=== PATIENT | female | born 1940 | race Caucasian/White ===

== ENCOUNTER 2017-05-13 15:01 | Inpatient (IN) ==
[2017-05-13] MEDS ORDERED: SODIUM CHLORIDE 0.9% 500 ML IV STA (15:44)
[2017-05-13 16:01] LABS: Basophils % 0.8 % (0.0-0.8); Eosinophils # 0.1 10*3/uL (0.0-0.87); Eosinophils % 1.4 % (0.00-10.9); Hematocrit 41.1 VOL% (35.7-47.0); Hemoglobin 14.3 GM/DL (12.0-16.0); Immature Granulocytes % 0.4 %; Immature Granulocytes Absolute 0.02 #; Lymphocytes # 1.6 10*3/uL (1.4-4.0); Lymphocytes % 32.6 % (21.3-54.2); Mean Corpuscular HGB Conc 34.8 GM/DL (32-36); Mean Corpuscular Hemoglobin 31 PG (27-34); Mean Corpuscular Volume 88.8 FL (87-102); Mean Platelet Volume 9.4 FL (9.6-12.0); Monocytes # 0.5 10*3/uL (0.11-0.8); Monocytes % 10.9 % (1.7-12.7); Neutrophils # 2.7 10*3/uL (1.4-7.4); Neutrophils % 53.9 % (38.7-73.9); Platelet Count 200 T/CUMM (130-400); Red Blood Count 4.63 MC/CUMM (3.8-5.5); Red Cell Distribution Width 13.2 % (9.3-17.3)
--- NOTE | 2017-05-13 16:02 | Emergency Department Note ---
Fracisco Aranda Brooke, am scribing for, and in the presence of, Kang Goodman MD 15:36. Rex Aranda Phillip K, MD, personally performed the services described in this documentation, ascribed by Syl Yap in my presence, and it is both accurate and complete [id number] . Arrival - Arrival ED Nursing Triage Note: Brought in per EMS with c/o left flank pain onset today. +dyspnea on exertion. +abdominal distention x one month. +decrease urine output. +dizziness. Mode of Arrival: Stretcher Limitations: No Limitations Source: Patient, RN Notes Reviewed - History of Present Illness Onset (ago): day(s) (1) Consistency: intermittent Date of Last Menstrual Period: PM <Kang Goodman - Last Filed: 05/13/17 16:01> <Pete Lewis - Last Filed: 05/13/17 17:49> - Arrival Chief Complaint: Abdominal / Flank Pain Stated Complaint: abdominal pain Time Seen by Provider: 05/13/17 15:26 - History of Present Illness HPI Narrative: Patient is a 77 year old female who presents to the ED with c/o abdominal pain that started this morning. She says she had two "sever" pains shoot across the top of her abdomen and then has had intermittent LUQ pain since. Patient says she has never experienced this pain in the past. She says the pain is worsened with movement and taking deep breaths. She says her abdomen feel bloated. She denies having any fever, nausea, or vomiting but says she feels bloated, has had chills, cough, and left sided back pain. Her cough is productive in the mornings with yellow mucous. She says she has not had an appetite today. Her last bowel movement was yesterday and it was normal. She does have a history of diverticulitis but says the pain is usually in the lower abdomen. She has never had any abdominal surgeries. Patient has PMHx of HTN, migraines, TIA, vertigo, NIDDM, thyroid disorder, recurring urinary tract infections, GERD, back/neck problems, and herniated disk. (Syl Yap) Patient is a 77 year old female who presents to the ED with c/o abdominal pain that started this morning. She says she had two "sever" pains shoot across the top of her abdomen and then has had intermittent LUQ pain since. Patient says she has never experienced this pain in the past. She says the pain is worsened with movement and taking deep breaths. She says her abdomen feel bloated. She denies having any fever, nausea, or vomiting but says she feels bloated, has had chills, cough, and left sided back pain. Her cough is productive in the mornings with yellow mucous. She says she has not had an appetite today. Her last bowel movement was yesterday and it was normal. She does have a history of diverticulitis but says the pain is usually in the lower abdomen. She has never had any abdominal surgeries. Patient has PMHx of HTN, migraines, TIA, vertigo, NIDDM, thyroid disorder, recurring urinary tract infections, GERD, back/neck problems, and herniated disk. (Kang Goodman) Allergies/Adverse Reactions: Allergies Allergy/AdvReac Type Severity Reaction Status Date / Time codeine Allergy Unknown/Unable Verified 05/13/17 15:18 to obtain metronidazole [From Flagyl] Allergy Unknown/Unable Verified 05/13/17 15:18 to obtain Sulfa (Sulfonamide Allergy Unknown/Unable Verified 05/13/17 15:18 Antibiotics) to obtain Home Medications: Home Medications Medication Instructions Recorded Confirmed Type Bisoprolol [Zebeta] 5 mg PO DAILY 08/27/15 01/19/17 History DULoxetine [Cymbalta] 30 mg PO DAILY 08/27/15 01/19/17 History Lactobacillus Combo No.6 1 each PO DAILY 08/27/15 01/19/17 History [Probiotic Complex] [place]-3 Acid Ethyl Esters 1 gm PO DAILY 08/27/15 01/19/17 History Omeprazole [Prilosec] 20 mg PO DAILY 08/27/15 01/19/17 History Lisinopril [Prinivil] 5 mg PO BEDTIME 08/28/15 01/19/17 History Gabapentin Cap/Tab [Neurontin 600 mg PO BEDTIME 09/23/15 01/19/17 History Cap/Tab] Diltiazem Cd Cap [Cardizem CD] 120 mg PO DAILY #30 capsule 09/25/15 01/19/17 Rx Review of System - Review of System 12 point system: reviewed and no additional remarkable complaints except as stated - Review of System Constitutional: Present: chills. Absent: fever Respiratory: Present: cough (productive in the mornings- yellow mucous). Absent : respiratory distress Gastrointestinal: Present: abdominal pain (LUQ). Absent: nausea, vomiting Skin: Absent: rash <Kang Goodman - Last Filed: 05/13/17 16:01> Medical,Surgical,& Family Hx - Medical History Cardio: History of: Hypertension Neurology: History of: Migraine, TIA, Vertigo No history of: Seizures Endocrine: History of: Diabetes Mellitus (NIDDM), Thyroid Disorder Respiratory: History of: Respiratory Problems (sob with exertion) Genitourinary: History of: Bladder Problem (chronic UTI), Recurring Urinary Tract Infections Gastrointestinal: History of: Diverticulitis/ Diverticulosis, GERD Musculoskeletal: History of: Back/Neck Problems, Herniated Disk Hematology: No history of: Blood Transfusion Reaction Other: No history of: Anesthesia Reactions - Surgical History Cardiac Surgeries: Sugical HX of: Cardiac Catheterization (no significant CAD, global left ventricular systolic dysfunction, 40%EF) HEENT Surgeries: Surgical HX of: Eye Surgery (cataracts keith) Abdominal Surgeries: Surgical HX of: Abdominal Surgery (esophageal dilation), Colonoscopy, EGD Orthopedic Surgeries: Surgical HX of;: Spinal Surgery Patient denies;: Orthopedic Surgery - Family History Family History: Reports;: Family Cancer (dad), Family Heart Disease (father with coronary artery disease, mother with heart failure) - Social History Smoking Status: Never smoker Frequency of Alcohol Use: None Type of Drug Use: None <Kang Goodman Julieta - Last Filed: 05/13/17 16:01> Exam - General General appearance: alert, in no apparent distress - Head Head exam: Present: atraumatic, normocephalic - Eye Eye exam: Present: normal appearance, PERRL, EOMI - ENT ENT exam: Present: normal exam - Neck Neck exam: Present: normal inspection - Chest Chest inspection: Present: normal inspection, symmetric chest wall rise - Respiratory Respiratory exam: Present: normal lung sounds bilaterally - Cardiovascular Cardiovascular exam: Present: regular rate, normal rhythm, normal heart sounds - Abdominal Exam Abdominal exam: Present: soft, tenderness (LUQ and LLQ to direct palpation), normal bowel sounds. Absent: distention, guarding, rebound - Extremities Exam Extremities exam: Present: normal inspection - Back Exam Back exam: Present: normal inspection. Absent: CVA tenderness (R), CVA tenderness (L) - Neurological Exam Neurological exam: Present: alert, oriented X3 - Psychiatric Psychiatric exam: Present: normal affect, normal mood - Skin Skin exam: Present: warm, dry, intact, normal color <Kang Goodman - Last Filed: 05/13/17 16:01> Vital Signs: Vital Signs Temperature 97.3 F L 05/13/17 15:01 Pulse Rate 75 05/13/17 16:00 Respiratory Rate 18 05/13/17 16:00 Blood Pressure 137/87 05/13/17 16:00 O2 Sat by Pulse Oximetry 92 L 05/13/17 16:00 Course <Kang Goodman - Last Filed: 05/13/17 16:01> <Pete Lewis - Last Filed: 05/13/17 17:49> - Reevaluation(s) Reevaluation #1: Discussed with patient the results of her CT which would indicate the possible finding of a colonic stricture or apple core lesion. This would require hospitalization for further evaluation. (Pete Lewis) - Consultations Consultation #1: Discussed with the hospitalist service who will admit for further evaluation treatment. (Pete Lewis) Results <Kang Goodman - Last Filed: 05/13/17 16:01> - Labs CBC & BMP: 05/13/17 15:54 05/13/17 15:54 - Diagnostic Findings Procedure: CT Abdomen and Pelvis: image reviewed by me, report reviewed by me ( Evidence of excessive stool but also colonic stricture) <Pete Lewis - Last Filed: 05/13/17 17:49> - Labs Labs: I reviewed the laboratory and noted its gross normality (Pete Lewis) Disposition <Kang Goodman - Last Filed: 05/13/17 16:01> Case discussed with: patient Time of Disposition: 17:49 <Pete Lewis - Last Filed: 05/13/17 17:49> Clinical Impression: Colonic stricture, Diverticulosis, Constipation Disposition: Still a Patient Condition: Stable
[2017-05-13] MEDS ORDERED: LEVOFLOXACIN INJ 750 MG in PREMIX 1 EACH IV STA (16:03)
[2017-05-13] MEDS ORDERED: DICYCLOMINE 20 MG/2 ML AMP IM ONE ×2 (16:03→16:18)
[2017-05-13] MEDS ORDERED: METOCLOPRAMIDE 10 MG/2 ML VIAL IV STA (16:03)
[2017-05-13] MEDS ORDERED: METOCLOPRAMIDE 10 MG/2 ML VIAL ONE (16:18)
[2017-05-13] MEDS ORDERED: LEVOFLOXACIN INJ 150 ML IV ONE (16:18)
--- NOTE | 2017-05-13 16:27 | XRay Report ---
Portable chest Date: 05/13/2017 Clinical history: Generalized abdominal pain Comparison: 09/23/2015 Technique: Portable AP sitting chest Findings: The heart is normal in size with minimal uncoiling of the aorta. Chronic scarring in the lungs with minimal atelectasis at the lung bases. Degenerative changes are noted with stable mediastinum. Impression: Chronic scarring with minimal atelectasis at the lung bases. PROCEDURE INTERPRETED AT [facility] DEPARTMENT OF RADIOLOGY Final Report Signed by: Dr. Gricelda Ramachandran
[2017-05-13 16:39] LABS: Bilirubin,Total 0.4 MG/DL (0.2-1.0); Calcium 9.4 MG/DL (8.5-10.1); Magnesium 2.6 MG/DL (1.8-2.4); Osmolality,Calculated 283.1 MOS/KG (273-304); Potassium 3.7 MMOL/L (3.5-5.1); Total Protein 7.4 G/DL (6.4-8.3)
[2017-05-13 16:41] LABS: Apearance,Urine CLEAR (Clear); Bilirubin,Urine Negative (Negative); Blood, Urine Negative (Negative); Glucose,Urine (UA) Negative (Negative); Ketones,Urine Negative (Negative); Mucus,Urine Occasional /LPF (Occasional); Nitrite,Urine Negative (Negative); Protein,Urine Negative; RBC,Urine 2 /HPF (0-4); Urine Color Yellow (Yellow); Urine Specific Gravity 1.006 (1.001-1.035)
--- NOTE | 2017-05-13 16:51 | CT Report ---
History: Abdominal pain and pelvic pain Date: 05/13/2017 Study: CT abdomen and pelvis without contrast Comparison exam: No previous abdominal CT available Technique: Spiral CT sections were obtained from the lung bases to the pubic symphysis without contrast. The CT exam was performed using one or more of the following dose reduction techniques: Automated exposure control, adjustment of the mA and/or kV according to patient size, or use of iterative reconstruction technique. CT abdomen: There is some minor platelike scar or subsegmental atelectasis in the lower lobes. There is a small nonspecific 5.9 mm lobular noncalcified pulmonary nodule in the right middle lobe of uncertain chronicity. Consider 1 year follow-up CT chest to document stability over time if the patient is at high risk for malignancy. There is no pleural or pericardial effusion. There is a small hiatal hernia. There is no evidence of pneumoperitoneum. The liver, gallbladder, bile ducts, spleen, pancreas, adrenal glands, and kidneys are unremarkable in noncontrast CT appearance. There is no radiopaque renal or ureteral stone. There is no hydronephrosis. The appendix is normal. There is a large amount of retained stool in the colon. There is prominent diverticulosis of the colon, more so at the sigmoid level. There is a small area of relative narrowing of the sigmoid colon, proximal to which there is an abundant amount of stool. Consider follow-up contrast enema or endoscopy to help exclude mild stricture at this level. CT pelvis: There is no pelvic mass or abnormal pelvic fluid collection. Impression: Large amount of stool in the colon suggesting constipation. There is a small area of relative narrowing of the sigmoid colon which could be artifactual related to peristalsis or could represent an underlying mild colonic stricture. Consider follow-up contrast enema or endoscopy to help exclude stricture, when clinically feasible. Diverticulosis without john diverticulitis No radiopaque renal or ureteral stone. PROCEDURE INTERPRETED AT [facility] DEPARTMENT OF RADIOLOGY Final Report Signed by: Dr. Vero Mitchell
[2017-05-13] MEDS ORDERED: methylPREDNISolone SOD SUC 125 MG/2 ML VIAL IV STA (17:45)
[2017-05-13] MEDS ORDERED: methylPREDNISolone SOD SUC 125 MG/2 ML VIAL ONE (18:01)
--- NOTE | 2017-05-13 18:01 | EKG Report ---
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
--- NOTE | 2017-05-13 18:03 | Hospitalist History & Physical ---
Assessment and Plan (1) Abdominal pain Status: Acute Assessment and plan: There are several factors that may attribute to the onset of abdominal pain. CT scan revealed a large amount of stool located in the distal colon. Per patient report, her constipation is chronic in nature. However, CT scan also identified colonic stricture and the presence of diverticulosis without john diverticulitis. We will start empiric antibiotic coverage, promote bowel rest, manage pain, and consult gastroenterology to evaluate and assist during the clinical encounter. Current Visit: Yes (2) Constipation Status: Acute Assessment and plan: Patient reports constipation is chronic in nature and is associated with her medication use. Patient reports that she normally goes at least one week without having a bowel movement. CT scan reported a large amount of stool in the colon which suggested constipation. We will start empiric antibiotics, PPIs , promote bowel rest, pain management, and consult GI to evaluate and assist during the clinical encounter. Current Visit: No (3) Atrial fibrillation, chronic Status: Acute Assessment and plan: Shortly after the physical assessment, the patient notified the nursing staff "heart flutters"; an EKG was obtained which revealed atrial fibrillation with a rate of 120. We will give Cardizem 15 mg IV push for rate control prior to transfer to the medical surgical floor. The patient will be placed on a bus driver/monitor. We will consult cardiology to evaluate and assist during the clinical encounter. Current Visit: Yes History of Present Illness Chief complaint: abdominal pain History of present illness: This is a very pleasant 77-year-old female that presented to the ED at [facility] per EMS for the evaluation of abdominal pain. And has a medical history significant for: Coronary artery disease, hyperlipidemia, sciatica, hyperlipidemia, diverticulitis, diverticulosis, migraine headaches, transient ischemic attacks, vertigo, chronic ear tract infections, chronic neck and back pain, neuropathy, atrial fibrillation with rapid ventricular response, essential hypertension, and chronic constipation. Patient has a surgical history significant for some bilateral cataract removal, esophageal dilation, colonoscopy, and lumbar surgery. The patient reported the onset of the above complaints on earlier today. The patient describes the pain as "very severe" that initially radiated across her entire abdomen; then gradually progressed to intermittent left upper quadrant pain. In addition, the patient reports that the pain increases with movement and inhalation. She reports that she has experienced intermittent chills, cough, and left-sided back pain. She describes her cough as productive in the mornings with a yellow mucus production. At the time of ED presentation, the patient was assessed. Labs were obtained; hematology reported white blood cell count at 5.0, hemoglobin at 14.3, hematocrit 41.1, and platelet count of 200. Chemistry profile reported; sodium 142, potassium 3.7, chloride 107, carbon dioxide 27, anion gap 11.7, BUN 15, creatinine 1.00, glucose 90 benign, calculated osmolality 283.1, calcium 9.4, magnesium 2.6, total bilirubin 0.40, AST 19, ALT 22, alkaline phosphatase 64, total protein 7.4, albumin 4.0, lipase 240.0. Urinalysis was essentially unremarkable. Chest x-ray was obtained; which was significant for chronic scarring and minimal atelectasis at the lung bases. CT abdomen and pelvis suggested a large amount of stool in the colon suggesting constipation. A small area of relative narrowing of the sigmoid colon was noted which could be artifactual or related to peristalsis or could represent underlying mild colonic stricture. Diverticulitis was present without john diverticulosis. After brief discussion with Dr. Hercules and , the patient will be admitted to the hospitalist services for continuation of care. We will consult gastroenterology to evaluate and assist during the clinical encounter. Home Medications Medication Instructions Recorded Confirmed Type Bisoprolol [Zebeta] 5 mg PO DAILY 08/27/15 01/19/17 History DULoxetine [Cymbalta] 30 mg PO DAILY 08/27/15 01/19/17 History Lactobacillus Combo No.6 1 each PO DAILY 08/27/15 01/19/17 History [Probiotic Complex] [place]-3 Acid Ethyl Esters 1 gm PO DAILY 08/27/15 01/19/17 History Omeprazole [Prilosec] 20 mg PO DAILY 08/27/15 01/19/17 History Lisinopril [Prinivil] 5 mg PO BEDTIME 08/28/15 01/19/17 History Gabapentin Cap/Tab [Neurontin 600 mg PO BEDTIME 09/23/15 01/19/17 History Cap/Tab] Diltiazem Cd Cap [Cardizem CD] 120 mg PO DAILY #30 capsule 09/25/15 01/19/17 Rx Allergies Allergy/AdvReac Type Severity Reaction Status Date / Time codeine Allergy Unknown/Unable Verified 05/13/17 15:18 to obtain metronidazole [From Flagyl] Allergy Unknown/Unable Verified 05/13/17 15:18 to obtain Sulfa (Sulfonamide Allergy Unknown/Unable Verified 05/13/17 15:18 Antibiotics) to obtain Medical,Surgical,& Family Hx - Medical History Cardio: History of: Hypertension Neurology: History of: Migraine, TIA, Vertigo No history of: Seizures Endocrine: History of: Diabetes Mellitus (NIDDM), Thyroid Disorder Respiratory: History of: Respiratory Problems (sob with exertion) Genitourinary: History of: Bladder Problem (chronic UTI), Recurring Urinary Tract Infections Gastrointestinal: History of: Diverticulitis/ Diverticulosis, GERD Musculoskeletal: History of: Back/Neck Problems, Herniated Disk Hematology: No history of: Blood Transfusion Reaction Other: No history of: Anesthesia Reactions - Surgical History Cardiac Surgeries: Sugical HX of: Cardiac Catheterization (no significant CAD, global left ventricular systolic dysfunction, 40%EF) HEENT Surgeries: Surgical HX of: Eye Surgery (cataracts keith) Abdominal Surgeries: Surgical HX of: Abdominal Surgery (esophageal dilation), Colonoscopy, EGD Orthopedic Surgeries: Surgical HX of;: Spinal Surgery Patient denies;: Orthopedic Surgery - Family History Family History: Reports;: Family Cancer (dad), Family Heart Disease (father with coronary artery disease, mother with heart failure) - Social History Smoking Status: Never smoker Frequency of Alcohol Use: None Type of Drug Use: None 12 point system: reviewed and no additional remarkable complaints except as stated Exam - Constitutional Vitals: Period Temp Pulse Resp BP Sys/Alba Pulse Ox Last 24 Hr 97.3 F-97.3 F 75-76 18-20 137-162/87-94 92-98 General appearance: normal weight, no acute distress - Head Head exam: Present: normal inspection, normocephalic, atraumatic - Eye Eye exam: Present: EOMI. Absent: conjunctival injection Pupils: Present: ELIZABETH, normal accommodation - ENT ENT exam: Present: normal exam, normal external ear exam, normal oropharynx - Neck Neck exam: Present: normal inspection. Absent: lymphadenopathy, meningismus, tenderness, thyromegaly - Respiratory Respiratory exam: Present: clear to auscultation bilaterally. Absent: rales, rhonchi, stridor, wheezes - Cardiovascular Cardiovascular exam: Present: regular rate and rhythm. Absent: carotid bruit, diastolic murmur, gallop, JVD, rubs, systolic murmur, tachycardia - GI/Abdominal GI/Abdominal exam: Present: hypoactive bowel sounds, tenderness (Left upper and left lower quadrant tenderness upon gentle palpation), soft - Extremities Exam Extremities exam: Present: normal inspection, normal capillary refill, full ROM - Back Exam Back exam: Present: normal inspection - Neurological Exam Neurological exam: Present: alert, oriented X3, CN II-XII intact - Psychiatric Psychiatric exam: Present: normal affect, normal mood - Skin Skin exam: Present: normal color, warm Results - Labs CBC & BMP: 05/13/17 15:54 05/13/17 15:54 Lab Results: I have reviewed the past 24 hour labs
[2017-05-13] MEDS ORDERED: DILTIAZEM 50 MG/10 ML VIAL IV STA (18:12)
[2017-05-13] MEDS ORDERED: MAGNESIUM SULF RIDER 2 GM in PREMIX 1 EACH IV PRN (18:20)
[2017-05-13] MEDS ORDERED: MAGNESIUM SULF RIDER 4 GM in PREMIX 1 EACH IV PRN (18:20)
[2017-05-13] MEDS ORDERED: DILTIAZEM 50 MG/10 ML VIAL IV ONE (18:29)
[2017-05-13] MEDS ORDERED: ACETAMINOPHEN 325 MG TABLET PO PRN (19:28)
[2017-05-13] MEDS ORDERED: DOCUSATE SODIUM 100 MG CAPSULE PO PRN (19:28)
[2017-05-13] MEDS: DULoxetine 30 MG CAPSULE PO SCH (21:16)
[2017-05-13] MEDS: SODIUM CHLORIDE 0.9% 1,000 ML IV SCH (21:16)
[2017-05-13] MEDS: GABAPENTIN 600 MG TABLET PO SCH (21:17)
[2017-05-13] MEDS: LISINOPRIL 5 MG TABLET PO SCH (21:17)
[2017-05-13] MEDS ORDERED: MAGNESIUM CITRATE 300 ML BOTTLE PO ONE (22:10)
[2017-05-14] MEDS: LEVOTHYROXINE 50 MCG TABLET PO SCH (05:50)
[2017-05-14 07:24] LABS: Hematocrit 39.9 VOL% (35.7-47.0); Hemoglobin 13.5 GM/DL (12.0-16.0); Immature Granulocytes % 0.4 %; Immature Granulocytes Absolute 0.02 #; Lymphocytes # 0.7 10*3/uL (1.4-4.0); Lymphocytes % 12.2 % (21.3-54.2); Mean Corpuscular HGB Conc 33.8 GM/DL (32-36); Mean Corpuscular Hemoglobin 31 PG (27-34); Mean Corpuscular Volume 90.5 FL (87-102); Mean Platelet Volume 9.4 FL (9.6-12.0); Monocytes # 0.1 10*3/uL (0.11-0.8); Monocytes % 1.1 % (1.7-12.7); Neutrophils # 4.7 10*3/uL (1.4-7.4); Neutrophils % 86.3 % (38.7-73.9); Platelet Count 194 T/CUMM (130-400); Red Blood Count 4.41 MC/CUMM (3.8-5.5); Red Cell Distribution Width 13.1 % (9.3-17.3); White Blood Count 5.4 T/CUMM (4-12)
[2017-05-14 07:47] LABS: Albumin 3.5 G/DL (3.4-5.0); Bilirubin,Total 0.5 MG/DL (0.2-1.0); Calcium 8.4 MG/DL (8.5-10.1); Magnesium 2.7 MG/DL (1.8-2.4); Osmolality,Calculated 297.3 MOS/KG (273-304); Potassium 4.1 MMOL/L (3.5-5.1); Total Protein 6.7 G/DL (6.4-8.3)
[2017-05-14] MEDS ORDERED: PANTOPRAZOLE 40 MG VIAL IV SCH (09:00)
[2017-05-14] MEDS: SODIUM CHLORIDE 0.9% 1,000 ML IV SCH (09:35)
[2017-05-14] MEDS: BISOPROLOL 5 MG TABLET PO SCH (09:37)
[2017-05-14] MEDS: PANTOPRAZOLE 40 MG TABLET PO SCH (09:37)
[2017-05-14] MEDS: OMEGA 3 ACID ETHYL ESTERS 1 GM CAPSULE PO SCH (09:37)
[2017-05-14] MEDS: DILTIAZEM CD 120 MG CAPSULE PO SCH (09:37)
[2017-05-14] MEDS: DULoxetine 30 MG CAPSULE PO SCH ×2 (09:37→20:49)
[2017-05-14] MEDS: LACTOBACILLUS ACIDOPHILUS/BULGARICUS CHEW TABLET PO SCH (09:40)
--- NOTE | 2017-05-14 11:03 | Cardiology Consult Note ---
Assessment and Plan (1) Paroxysmal atrial fibrillation Status: Acute Assessment and plan: She has converted back to sinus rhythm. I agree with her current management and I am going to add vitamin C which may help with the constipation and the paroxysmal atrial fibrillation. I think the patient should get chronic anticoagulation with medication such as Eliquis. However, she may end up needing endoscopy. We can hold off on starting this until after her workup is complete. At that point I think we should start Eliquis 2.5 mg p.o. twice daily. Current Visit: Yes (2) Abdominal pain Status: Acute Assessment and plan: Workup underway per gastroenterology Current Visit: Yes (3) Constipation Status: Acute Assessment and plan: Patient has marked constipation which is being treated. This may be the source of her abdominal bloating. GI is also seeing her. Current Visit: No (4) Essential hypertension Status: Acute Assessment and plan: This appears to be adequately controlled on her current medical regimen. Current Visit: No History of Present Illness - Consult Narrative History of present illness: Ms. Buckner is a 77 year old female who has a history of multiple medical problems including paroxysmal atrial fibrillation, constipation, hyperlipidemia , and hypertension. She tells me that occasionally she will develop palpitations consistent with A. fib and she takes a beta-adrian and lays down and generally this goes away within a few hours spontaneously. The symptoms are moderate in severity and seem to occur randomly. There are no specific exacerbating or relieving factors. There are no associated symptoms such as nausea, diaphoresis, or syncope. The patient also states that recently she has been having severe bloating in her abdomen. The symptoms are moderate to severe and seem to come and go randomly. There are no specific exacerbating or relieving factors. She also has chronic constipation. She came to the hospital for evaluation and was noted to have paroxysmal atrial fibrillation. She is back in sinus rhythm at this time. Actually the time I was seeing her she was feeling pretty much back to normal. She was not having any cardiac symptoms such as angina, palpitations, dyspnea, orthopnea, or peripheral edema. She has some chronic constipation and CT scan shows a colonic stricture with the presence of diverticulosis. Gastroenterology has been consulted to evaluate her. She does have a history of colon cancer in her sister. Home Medications Medication Instructions Recorded Confirmed Type Bisoprolol [Zebeta] 5 mg PO QAM 08/27/15 05/13/17 History DULoxetine [Cymbalta] 30 mg PO BID 08/27/15 05/13/17 History Lactobacillus Combo No.6 1 each PO QAM 08/27/15 05/13/17 History [Probiotic Complex] Ophiem-3 Acid Ethyl Esters 1 gm PO QAM 08/27/15 05/13/17 History Omeprazole [Prilosec] 20 mg PO QAM 08/27/15 05/13/17 History Lisinopril [Prinivil] 5 mg PO BEDTIME 08/28/15 05/13/17 History Gabapentin Cap/Tab [Neurontin 600 mg PO BEDTIME 09/23/15 05/13/17 History Cap/Tab] Diltiazem Cd Cap [Cardizem CD] 120 mg PO QAM 05/13/17 05/13/17 History Levothyroxine Tab [Synthroid Tab] 50 mcg PO DAILY@59905/13/17 05/13/17 History CC: Emilee Hilliard MD - Home Medications and Allergies Home Medications: Home Medications Medication Instructions Recorded Confirmed Type Bisoprolol [Zebeta] 5 mg PO QAM 08/27/15 05/13/17 History DULoxetine [Cymbalta] 30 mg PO BID 08/27/15 05/13/17 History Lactobacillus Combo No.6 1 each PO QAM 08/27/15 05/13/17 History [Probiotic Complex] Ophiem-3 Acid Ethyl Esters 1 gm PO QAM 08/27/15 05/13/17 History Omeprazole [Prilosec] 20 mg PO QAM 08/27/15 05/13/17 History Lisinopril [Prinivil] 5 mg PO BEDTIME 08/28/15 05/13/17 History Gabapentin Cap/Tab [Neurontin 600 mg PO BEDTIME 09/23/15 05/13/17 History Cap/Tab] Diltiazem Cd Cap [Cardizem CD] 120 mg PO QAM 05/13/17 05/13/17 History Levothyroxine Tab [Synthroid Tab] 50 mcg PO DAILY@59905/13/17 05/13/17 History Allergies/Adverse Reactions: Allergies Allergy/AdvReac Type Severity Reaction Status Date / Time codeine Allergy Unknown/Unable Verified 05/13/17 15:18 to obtain metronidazole [From Flagyl] Allergy Unknown/Unable Verified 05/13/17 15:18 to obtain Sulfa (Sulfonamide Allergy Unknown/Unable Verified 05/13/17 15:18 Antibiotics) to obtain 12 point system: reviewed and no additional remarkable complaints except as stated Medical,Surgical,& Family Hx - Medical History Cardio: History of: Cardiac Dysrhythmia (atrial fib), Hypertension Neurology: History of: Migraine, TIA, Vertigo No history of: Seizures Endocrine: History of: Thyroid Disorder No history of: Diabetes Mellitus (NIDDM) Respiratory: History of: Respiratory Problems (sob with exertion) Genitourinary: History of: Bladder Problem (chronic UTI), Recurring Urinary Tract Infections Gastrointestinal: History of: Diverticulitis/ Diverticulosis, GERD, GI Problems (esophageal stricture) Musculoskeletal: History of: Back/Neck Problems, Herniated Disk Hematology: No history of: Blood Transfusion Reaction Other: No history of: Anesthesia Reactions - Surgical History Cardiac Surgeries: Sugical HX of: Cardiac Catheterization (no significant CAD, global left ventricular systolic dysfunction, 40%EF) Thoracic Surgeries: Patient denies;: Lobectomy Neurologic Surgeries: Patient denies: Neurologic Surgery HEENT Surgeries: Surgical HX of: Eye Surgery (cataracts keith) Abdominal Surgeries: Surgical HX of: Abdominal Surgery (esophageal dilation), Colonoscopy, EGD Reproductive Surgeries: Patient denies;: Genitourinary Surgery, Gynecologic Surgery Orthopedic Surgeries: Surgical HX of;: Spinal Surgery Patient denies;: Orthopedic Surgery - Family History Family History: Reports;: Family Cancer (dad), Family Heart Disease (father with coronary artery disease, mother with heart failure) - Social History Smoking Status: Never smoker Frequency of Alcohol Use: None Type of Drug Use: None Physical Examination Vital Signs Temp Pulse Resp BP Pulse Ox 97.3 F L 76 20 152/89 98 05/13/17 15:01 05/13/17 15:01 05/13/17 15:01 05/13/17 15:01 05/13/17 15:01 Other: General: Well-developed well-nourished in no acute distress HEENT: Normocephalic, atraumatic Neck: Supple Neck, Midline Trachea, no JVD, no bruit Cardiac: Regular rhythm, 2/6 systolic murmur, no gallop, no rub Lungs: Clear to Ascultation, No Wheeze, Rales, Rhonchi Neuro: Cranial Nerve 2-12 Intact, diffuse generalized weakness Abdomen: Soft, hypoactive bowel sounds, mild diffuse tenderness, no rebound, no masses Skin: Normal color, no rash Extremities: No Clubbing, No Cyanosis, No Edema, Normal Upper Extr. Pulses Musculoskeletal: No acute abnormality noted Psychiatric: The patient is alert and oriented. The patient does not appear to be anxious or depressed. Result/EKG - Labs CBC & BMP: 05/14/17 07:19 05/14/17 06:00 Lab Results: I have reviewed the past 24 hour labs Labs: Laboratory Results - last 24 hr 05/13/17 05/13/17 05/13/17 15:54 15:54 16:25 WBC 5.0 RBC 4.63 Hgb 14.3 Hct 41.1 MCV 88.8 MCH 31 MCHC 34.8 RDW 13.2 Plt Count 200 MPV 9.4 L Neut % (Auto) 53.9 Lymph % (Auto) 32.6 Hamlin % (Auto) 10.9 Eos % (Auto) 1.4 Baso % (Auto) 0.8 Neut # (Auto) 2.7 Lymph # (Auto) 1.6 Hamlin # (Auto) 0.5 Eos # (Auto) 0.1 Baso # (Auto) 0.0 Immature Gran % 0.4 Nucleated RBC % 0.0 Immature Gran # 0.02 Nucleated RBCs # 0.00 Sodium 142 Potassium 3.7 Chloride 107 Carbon Dioxide 27 Anion Gap 11.7 BUN 15 Creatinine 1.00 GFR Calculation 58 BUN/Creatinine Ratio 15.00 Glucose 99 Calculated Osmolality 283.1 Calcium 9.4 Magnesium 2.6 H Total Bilirubin 0.40 AST 19 ALT 22 Alkaline Phosphatase 64 Total Protein 7.4 Albumin 4.0 Globulin 3.4 Albumin/Globulin Ratio 1.1 Lipase 240.0 Urine Color Yellow Urine Appearance Clear Urine pH 6.0 Ur Specific Collison 1.006 Urine Protein Negative Urine Glucose (UA) Negative Urine Ketones Negative Urine Blood Negative Urine Nitrate Negative Urine Bilirubin Negative Urine Urobilinogen 2.0 H Urine Leukocytes Negative Urine RBC 2 Urine Mucus Occasional Ur Culture Indicated? Not indicated 05/14/17 05/14/17 06:00 07:19 WBC 5.4 RBC 4.41 Hgb 13.5 Hct 39.9 MCV 90.5 MCH 31 MCHC 33.8 RDW 13.1 Plt Count 194 MPV 9.4 L Neut % (Auto) 86.3 H Lymph % (Auto) 12.2 L Hamlin % (Auto) 1.1 L Eos % (Auto) 0.0 Baso % (Auto) 0.0 Neut # (Auto) 4.7 Lymph # (Auto) 0.7 L Hamlin # (Auto) 0.1 L Eos # (Auto) 0.0 Baso # (Auto) 0.0 Immature Gran % 0.4 Nucleated RBC % 0.0 Immature Gran # 0.02 Nucleated RBCs # 0.00 Sodium 148 H Potassium 4.1 Chloride 113 H Carbon Dioxide 26 Anion Gap 13.1 BUN 17 Creatinine 1.10 H GFR Calculation 52 BUN/Creatinine Ratio 15.00 Glucose 133 H Calculated Osmolality 297.3 Calcium 8.4 L Magnesium 2.7 H Total Bilirubin 0.50 AST 15 ALT 20 Alkaline Phosphatase 57 Total Protein 6.7 Albumin 3.5 Globulin 3.2 Albumin/Globulin Ratio 1.0 L Lipase Urine Color Urine Appearance Urine pH Ur Specific Collison Urine Protein Urine Glucose (UA) Urine Ketones Urine Blood Urine Nitrate Urine Bilirubin Urine Urobilinogen Urine Leukocytes Urine RBC Urine Mucus Ur Culture Indicated? - EKG EKG results: interpreted by me
--- NOTE | 2017-05-14 11:03 | Gastrointestinal Consult Note ---
Assessment and Plan (1) Abnormal CT of the abdomen Status: Acute Assessment and plan: We will plan laxative treatment to minimize her constipation she has been taking Linzess periodically at home. Will get a copy of her prior colonoscopy report to assess adequacy of visualization with her family history and the abnormal CT it may be prudent to repeat her colonoscopy but a lot of this may be artifactual in nature as well. For now we will focus on fixing her obstipation issue and plans for ongoing management of this. Will discuss further possibility of colonoscopy. Current Visit: Yes (2) Constipation Status: Acute Assessment and plan: As above Current Visit: No (3) GERD (gastroesophageal reflux disease) Status: Acute Assessment and plan: Continue PPI treatment and antireflux precautions. No indication for EGD at this time. Current Visit: No History of Present Illness Chief complaint: Abnormal abdominal CT History of present illness: Ms. Buckner is a 77 year old female Who was admitted with complaints of atypical chest pain and abdominal discomfort. Symptoms have been getting worse over the past week or so and mostly consist of bloating and upper abdominal fullness. CT scan was remarkable for showing a large volume of stool and a question narrowed area in the sigmoid colon. Patient did have colonoscopy done she believes about 2 years ago but I do not have a copy of this at this time. She does have a significant family history of her sister recently from colon cancer. There is been no history of any GI bleeding, weight loss. She does have a history of reflux and reports good control with Prilosec. We are asked to see her now for further evaluation of her abnormal CT. Home Medications Medication Instructions Recorded Confirmed Type Bisoprolol [Zebeta] 5 mg PO QAM 08/27/15 05/13/17 History DULoxetine [Cymbalta] 30 mg PO BID 08/27/15 05/13/17 History Lactobacillus Combo No.6 1 each PO QAM 08/27/15 05/13/17 History [Probiotic Complex] Cornish-3 Acid Ethyl Esters 1 gm PO QAM 08/27/15 05/13/17 History Omeprazole [Prilosec] 20 mg PO QAM 08/27/15 05/13/17 History Lisinopril [Prinivil] 5 mg PO BEDTIME 08/28/15 05/13/17 History Gabapentin Cap/Tab [Neurontin 600 mg PO BEDTIME 09/23/15 05/13/17 History Cap/Tab] Diltiazem Cd Cap [Cardizem CD] 120 mg PO QAM 05/13/17 05/13/17 History Levothyroxine Tab [Synthroid Tab] 50 mcg PO DAILY@0600 05/13/17 05/13/17 History Allergies Allergy/AdvReac Type Severity Reaction Status Date / Time codeine Allergy Unknown/Unable Verified 05/13/17 15:18 to obtain metronidazole [From Flagyl] Allergy Unknown/Unable Verified 05/13/17 15:18 to obtain Sulfa (Sulfonamide Allergy Unknown/Unable Verified 05/13/17 15:18 Antibiotics) to obtain Medical,Surgical,& Family Hx - Medical History Cardio: History of: Cardiac Dysrhythmia (atrial fib), Hypertension Neurology: History of: Migraine, TIA, Vertigo No history of: Seizures Endocrine: History of: Thyroid Disorder No history of: Diabetes Mellitus (NIDDM) Respiratory: History of: Respiratory Problems (sob with exertion) Genitourinary: History of: Bladder Problem (chronic UTI), Recurring Urinary Tract Infections Gastrointestinal: History of: Diverticulitis/ Diverticulosis, GERD, GI Problems (esophageal stricture) Musculoskeletal: History of: Back/Neck Problems, Herniated Disk Hematology: No history of: Blood Transfusion Reaction Other: No history of: Anesthesia Reactions - Surgical History Cardiac Surgeries: Sugical HX of: Cardiac Catheterization (no significant CAD, global left ventricular systolic dysfunction, 40%EF) Thoracic Surgeries: Patient denies;: Lobectomy Neurologic Surgeries: Patient denies: Neurologic Surgery HEENT Surgeries: Surgical HX of: Eye Surgery (cataracts keith) Abdominal Surgeries: Surgical HX of: Abdominal Surgery (esophageal dilation), Colonoscopy, EGD Reproductive Surgeries: Patient denies;: Genitourinary Surgery, Gynecologic Surgery Orthopedic Surgeries: Surgical HX of;: Spinal Surgery Patient denies;: Orthopedic Surgery - Family History Family History: Reports;: Family Cancer (dad), Family Heart Disease (father with coronary artery disease, mother with heart failure) - Social History Smoking Status: Never smoker Frequency of Alcohol Use: None Type of Drug Use: None - Constitutional Constitutional: Present: fatigue. Absent: anorexia, chills, fever(s), weight loss - EENT Eyes: Absent: diplopia Ears: Absent: decreased hearing Nose, mouth and throat: Present: headache(s). Absent: dysphagia, epistaxis, sore throat - Cardiovascular Cardiovascular: Present: chest pain at rest. Absent: claudication, edema - Respiratory Respiratory: Present: dyspnea on exertion. Absent: cough, dyspnea, hemoptysis - Gastrointestinal Gastrointestinal: Present: abdominal pain, bloating, constipation, nausea. Absent: hematemesis, hematochezia, melena, vomiting - Genitourinary Genitourinary: Absent: flank pain, hematuria - Musculoskeletal Musculoskeletal: Absent: back pain - Neurological Neurological: Absent: abnormal gait, abnormal speech, behavioral changes - Endocrine Endocrine: Absent: fatigue, polydipsia, polyphagia - Hematologic/Lymphatic Hematologic/Lymphatic: Absent: easy bleeding, easy bruising, lymphadenopathy Exam - Constitutional Vitals: Period Temp Pulse Resp BP Sys/Alba Pulse Ox Last 24 Hr 97.2 F-97.9 F 67-122 14-20 101-162/55-94 92-98 General appearance: normal weight, no acute distress - Head Head exam: Present: normal inspection, normocephalic, atraumatic - Eye Eye exam: Present: EOMI. Absent: conjunctival injection, scleral icterus Pupils: Present: ELIZABETH. Absent: dilated - ENT ENT exam: Present: normal oropharynx - Neck Neck exam: Absent: lymphadenopathy, thyromegaly - Respiratory Respiratory exam: Present: clear to auscultation bilaterally. Absent: accessory muscle use, rales, rhonchi, wheezes - Cardiovascular Cardiovascular exam: Present: regular rate and rhythm. Absent: systolic murmur - GI/Abdominal GI/Abdominal exam: Present: normal bowel sounds, soft. Absent: ascites, distended, mass, organomegaly, tenderness, rebound - Extremities Exam Extremities exam: Present: normal inspection. Absent: edema - Neurological Exam Neurological exam: Present: oriented X3 Results - Labs CBC & BMP: 05/14/17 07:19 05/14/17 06:00 Lab Results: I have reviewed the past 24 hour labs - Diagnostic Findings Procedure: CT Abdomen and Pelvis: report reviewed by me, image reviewed by me
[2017-05-14] MEDS: LACTULOSE 20 GM/30 ML UDCUP PO SCH ×3 (12:09→23:59)
[2017-05-14] MEDS: ASCORBIC ACID 500 MG TABLET PO SCH ×2 (12:09→20:49)
--- NOTE | 2017-05-14 12:13 | Hospitalist Progress Note ---
Assessment and Plan (1) Constipation Status: Acute Assessment and plan: Patient is already had mag citrate and Dr. Lynn has ordered some lactulose every 6 hours. Current Visit: No (2) GERD (gastroesophageal reflux disease) Status: Acute Assessment and plan: Continue Protonix Current Visit: No (3) Abdominal pain Status: Acute Assessment and plan: Thought to be secondary to constipation. Questionable stricture in the sigmoid colon area. Dr. Lynn consulted. He will obtain prior colonoscopies and make a decision about further intervention. Current Visit: Yes (4) Essential hypertension Status: Acute Assessment and plan: controlled Current Visit: No (5) Atrial fibrillation with RVR Status: Acute Assessment and plan: new onset, cont bisoprolol and dilt po, Dr. Amaro will see and decide on anticoagulation, will do lovenox for now until we decide on colonoscopy Current Visit: No Hospitalist: Subjective Interval history: Patient was under the impression that she was getting a colonoscopy today. I told her that they did not do colonoscopies on the weekends unless they were emergencies. We fed her. Dr. Lynn is seen her and is trying to get her previous colonoscopy reports. Exam - Constitutional Vitals: Period Temp Pulse Resp BP Sys/Alba Pulse Ox Last 24 Hr 97.1 F-97.9 F 65-122 14-20 101-162/55-94 92-98 Exam: Heart Rate-[RRR] Lungs-[CTAB] GI-[+bs soft, NT] Ext-[no edema] Neuro [Motor 5/5], [alert and oriented times 2] psych [normal mood and affect] General [no acute distress] Results - Labs CBC & BMP: 05/14/17 07:19 05/14/17 06:00 Lab Results: I have reviewed the past 24 hour labs - Diagnostic Findings Procedure: Chest x-ray: report reviewed by me (Chronic scarring), CT Abdomen and Pelvis: report reviewed by me (Large amount of stool in choline suggesting constipation possible narrowing in the sigmoid colon)
[2017-05-14] MEDS: ENOXAPARIN 80 MG/0.8 ML SYRINGE SUBCUT SCH ×2 (12:52→23:59)
[2017-05-14] MEDS: SODIUM CHLORIDE 0.45% 1,000 ML IV SCH (14:59)
[2017-05-14] MEDS: GABAPENTIN 600 MG TABLET PO SCH (20:49)
[2017-05-14] MEDS: LISINOPRIL 5 MG TABLET PO SCH (20:50)
[2017-05-15] MEDS: SODIUM CHLORIDE 0.45% 1,000 ML IV SCH (04:08)
[2017-05-15] MEDS: LACTULOSE 20 GM/30 ML UDCUP PO SCH (05:58)
[2017-05-15] MEDS: LEVOTHYROXINE 50 MCG TABLET PO SCH (06:06)
[2017-05-15] MEDS: DILTIAZEM CD 120 MG CAPSULE PO SCH (08:30)
[2017-05-15] MEDS: BISOPROLOL 5 MG TABLET PO SCH (08:30)
[2017-05-15] MEDS: DULoxetine 30 MG CAPSULE PO SCH ×2 (08:30→20:44)
[2017-05-15] MEDS: PANTOPRAZOLE 40 MG TABLET PO SCH (08:30)
[2017-05-15] MEDS: OMEGA 3 ACID ETHYL ESTERS 1 GM CAPSULE PO SCH (08:31)
[2017-05-15] MEDS: ASCORBIC ACID 500 MG TABLET PO SCH ×2 (08:31→20:43)
[2017-05-15] MEDS: LACTOBACILLUS ACIDOPHILUS/BULGARICUS CHEW TABLET PO SCH (10:00)
--- NOTE | 2017-05-15 11:07 | Cardiology Progress Note ---
Assessment and Plan (1) Paroxysmal atrial fibrillation Status: Acute Assessment and plan: She is in and out of sinus rhythm. When she goes into atrial fibrillation her rate is still a bit fast. I am going to increase her diltiazem today. She may end up needing an antiarrhythmic. I think the patient should get chronic anticoagulation with medication such as Eliquis. However, she may end up needing endoscopy. We can hold off on starting this until after her workup is complete. At that point I think we should start Eliquis 2.5 mg p.o. twice daily. Current Visit: Yes (2) Abdominal pain Status: Acute Assessment and plan: Workup underway per gastroenterology Current Visit: Yes (3) Constipation Status: Acute Assessment and plan: Patient has marked constipation which is being treated. This may be the source of her abdominal bloating. GI is also seeing her. Current Visit: No (4) Essential hypertension Status: Acute Assessment and plan: This appears to be adequately controlled on her current medical regimen. Current Visit: No Cardiology - PN: Subj Interval history: The patient is feeling about the same today. She still has some abdominal bloating. Gastroenterology is evaluating her for this. She may end up needing colonoscopy. She has gone in and out of atrial fibrillation during her hospital stay. When she is in atrial fibrillation her heart rate is still a bit fast and she has some palpitations. I am going to adjust her medication for this today. Otherwise, she is doing well today. Current Medications Acetaminophen (Tylenol Tab) 650 mg PO Q4H PRN PRN Reason: Fever, Headache, Mild Pain Last Admin: 05/15/17 10:02 Dose: 650 mg Hydrocodone Bitart/Acetaminophen (Bradford 5-325) 1 tablet PO Q4H PRN PRN Reason: Pain Mild (1-3) Ascorbic Acid (Vitamin C Tab) 1,000 mg PO BID [facility] Last Admin: 05/15/17 08:31 Dose: 1,000 mg Bisoprolol Fumarate (Zebeta) 5 mg PO QAM [facility] Last Admin: 05/15/17 08:30 Dose: 5 mg Diltiazem HCl (Cardizem Cd) 120 mg PO QAM [facility] Last Admin: 05/15/17 08:30 Dose: 120 mg Docusate Sodium (Colace Cap) 100 mg PO BID PRN PRN Reason: Constipation Duloxetine HCl (Cymbalta) 30 mg PO BID [facility] Last Admin: 05/15/17 08:30 Dose: 30 mg Enoxaparin Sodium (Lovenox) 80 mg SUBCUT Q12H [facility] Last Admin: 05/14/17 23:59 Dose: 80 mg Gabapentin (Neurontin Cap/Tab) 600 mg PO BEDTIME [facility] Last Admin: 05/14/17 20:49 Dose: 600 mg Potassium Chloride 10 meq/ (Premix) 100 mls @ 100 mls/hr IV .PER PROTOCOL PRN; Protocol PRN Reason: Per Protocol Magnesium Sulfate 4 gm/ Premix 100 mls @ 25 mls/hr IV .PER PROTOCOL PRN; Protocol PRN Reason: Per Protocol Magnesium Sulfate 2 gm/ Premix 50 mls @ 25 mls/hr IV .PER PROTOCOL PRN; Protocol PRN Reason: Per Protocol Sodium Chloride (1/2ns) 1,000 mls @ 75 mls/hr IV .[id number] [facility] Last Admin: 05/15/17 04:08 Dose: 75 mls/hr Lactobacillus Acidophilus (Lactinex Chew Tab) [facility] [place] Last Admin: 05/15/17 10:00 Dose: 1 tablet Lactulose (Chronulac) 20 gm PO Q6HR [facility] Last Admin: 05/15/17 05:58 Dose: Not Given Levothyroxine Sodium (Synthroid Tab) 50 mcg PO DAILY@0600 [facility] Last Admin: 05/15/17 06:06 Dose: 50 mcg Lisinopril (Prinivil) 5 mg PO BEDTIME [facility] Last Admin: 05/14/17 20:50 Dose: 5 mg Ssvci-0-Yyrx Ethyl Esters (Lovaza) [facility] [place] Last Admin: 05/15/17 08:31 Dose: 1 gm Ondansetron HCl (Zofran Inj) 4 mg IV Q4H PRN PRN Reason: Nausea/Vomiting Pantoprazole Sodium (Protonix Tab) 40 mg PO QAM [facility] Last Admin: 05/15/17 08:30 Dose: 40 mg Exam (Progress Note) - Constitutional Vitals: Period Temp Pulse Resp BP Sys/Alba Pulse Ox Last 24 Hr 97.1 F-97.9 F 60-87 16-18 113-146/54-82 93-97 Exam: General: Well-developed well-nourished in no acute distress HEENT: Normocephalic, atraumatic Neck: Supple Neck, Midline Trachea, no JVD, no bruit Cardiac: Irregular rhythm, 2/6 systolic murmur, no gallop, no rub Lungs: Clear to Ascultation, No Wheeze, Rales, Rhonchi Neuro: Cranial Nerve 2-12 Intact, diffuse generalized weakness Abdomen: Soft, hypoactive bowel sounds, mild diffuse tenderness, no rebound, no masses Skin: Normal color, no rash Extremities: No Clubbing, No Cyanosis, No Edema, Normal Upper Extr. Pulses Musculoskeletal: No acute abnormality noted Psychiatric: The patient is alert and oriented. The patient does not appear to be anxious or depressed. Result/EKG - Labs CBC & BMP: 05/14/17 07:19 05/14/17 06:00 Lab Results: I have reviewed the past 24 hour labs - EKG EKG results: interpreted by me
[2017-05-15] MEDS ORDERED: DILTIAZEM CD 120 MG CAPSULE PO SCH (11:08)
[2017-05-15] MEDS ORDERED: DILTIAZEM CD 120 MG CAPSULE PO ONE (11:18)
--- NOTE | 2017-05-15 11:24 | Hospitalist Progress Note ---
Assessment and Plan (1) Constipation Status: Acute Assessment and plan: resolved with laxative, Dr. Lynn seeing patient Current Visit: No (2) GERD (gastroesophageal reflux disease) Status: Acute Assessment and plan: Continue Protonix Current Visit: No (3) Abdominal pain Status: Acute Assessment and plan: Questionable stricture in the sigmoid colon area. Dr. Lynn will discuss with patient about colonoscopy vs waiting Current Visit: Yes (4) Essential hypertension Status: Acute Assessment and plan: controlled Current Visit: No (5) Atrial fibrillation with RVR Status: Acute Assessment and plan: cont bisprolol and dilt, cont lovenox, will convert to eliquis when okay with Dr Lynn. Current Visit: No Hospitalist: Subjective Interval history: Discussed with dr. Lynn, he will discuss with patient about colonoscopy, hold off starting eliquis, patient nauseated today. Had diarrhea all night Exam - Constitutional Vitals: Period Temp Pulse Resp BP Sys/Alba Pulse Ox Last 24 Hr 97.1 F-97.9 F 60-87 16-18 113-146/54-82 93-97 Exam: Heart Rate-[IRR] Lungs-[CTAB] GI-[+bs soft, NT] Ext-[no edema] Neuro [Motor 5/5], [alert and oriented times 3] psych [normal mood and affect] General [no acute distress] Results - Labs CBC & BMP: 05/14/17 07:19 05/14/17 06:00 Lab Results: I have reviewed the past 24 hour labs
[2017-05-15] MEDS: DEXTROSE 5% 1,000 ML IV SCH (11:39)
[2017-05-15 12:02] LABS: Calcium 8.2 MG/DL (8.5-10.1); Magnesium 2.4 MG/DL (1.8-2.4); Osmolality,Calculated 285.7 MOS/KG (273-304); Potassium 3.4 MMOL/L (3.5-5.1)
--- NOTE | 2017-05-15 12:22 | Event Note ---
Chief complaint abnormal CT Good result so far from laxatives. Patient took with some complaints of abdominal pain. She feels a little washed out today. We still have had difficulty locating her colonoscopy that she says was done 2 years ago here but I can find no record in our system. We discussed repeat colonoscopy given her family history and CT abnormalities with she does not feel up taking a prep today so we will try this for tomorrow. She also states that the lactulose is causing good bit of cramping with changes to MiraLAX twice daily. We will keep her on a clear liquid diet. Will plan for colonoscopy on Tuesday Review of systems she denies any shortness of breath or chest pain On exam she is alert and oriented 3 in no acute distress Sclerae anicteric Oropharynx is benign Lids conjunctiva is unremarkable Neck is supple no JVD Lungs clear to all station no respiratory distress Heart regular rate and rhythm no murmur no edema Nontender no mass no hepatosplenomegaly Extremities no clubbing cyanosis edema all 4 extremities Recommendations: 1. Obstipation-add MiraLAX 1 capful twice daily discontinue lactulose. Plan colonoscopy on Tuesday as discussed to evaluate question sigmoid obstruction.
[2017-05-15] MEDS: ENOXAPARIN 80 MG/0.8 ML SYRINGE SUBCUT SCH (12:32)
[2017-05-15] MEDS: POTASSIUM CHLORIDE RIDER 10 MEQ in PREMIX 1 EACH IV PRN ×3 (12:32→14:40)
[2017-05-15 12:46] LABS: Apearance,Urine CLEAR (Clear); Bacteria,Urine Occasional /HPF (Few); Bilirubin,Urine Negative (Negative); Blood, Urine Negative (Negative); Glucose,Urine (UA) Negative (Negative); Ketones,Urine Negative (Negative); Nitrite,Urine Negative (Negative); Protein,Urine Negative; RBC,Urine <1 /HPF (0-4); Squamous Epithelial Cell,Urine Occasional /HPF (0-10); Urine Color Straw (Yellow); Urine Specific Gravity 1.002 (1.001-1.035); Urine Urobilinogen < 2.0 EU/DL (0.2-1.0); WBC,Urine <1 /HPF (0-6)
[2017-05-15] MEDS: POLYETHYLENE GLYCOL POWDER 17 GM PACK PO SCH (20:43)
[2017-05-15] MEDS: LISINOPRIL 5 MG TABLET PO SCH (20:44)
[2017-05-15] MEDS: GABAPENTIN 600 MG TABLET PO SCH (20:44)
[2017-05-15] MEDS: diphenhydrAMINE CAP 25 MG CAPSULE PO PRN (20:44)
[2017-05-16] MEDS: DEXTROSE 5% 1,000 ML IV SCH ×4 (00:38→20:15)
[2017-05-16] MEDS: ENOXAPARIN 80 MG/0.8 ML SYRINGE SUBCUT SCH (02:05)
[2017-05-16] MEDS: LEVOTHYROXINE 50 MCG TABLET PO SCH (06:44)
[2017-05-16] MEDS: OMEGA 3 ACID ETHYL ESTERS 1 GM CAPSULE PO SCH (08:41)
[2017-05-16] MEDS: ASCORBIC ACID 500 MG TABLET PO SCH ×2 (08:43→20:13)
[2017-05-16] MEDS: BISOPROLOL 5 MG TABLET PO SCH (08:43)
[2017-05-16] MEDS: PANTOPRAZOLE 40 MG TABLET PO SCH (08:43)
[2017-05-16] MEDS: DULoxetine 30 MG CAPSULE PO SCH ×2 (08:43→20:13)
[2017-05-16] MEDS: POLYETHYLENE GLYCOL POWDER 17 GM PACK PO SCH ×2 (08:43→20:15)
--- NOTE | 2017-05-16 09:24 | Cardiology Progress Note ---
Addendum entered and electronically signed by Ania Triana NP 05/16/17 10:35 : After reviewing patient's past medical records. It appears that she had a left heart catheterization performed [address] nino. At that time, she had no significant obstruction or coronary disease noted, only minimal luminal irregularities. Moderate global left ventricular systolic dysfunction was noted with an ejection fraction estimated at about 40%. Her cardiomyopathy was deemed nonischemic at that time. Normal LVEDP. Original Note: <Ania Triana - Last Filed: 05/16/17 09:04> Assessment and Plan (1) Paroxysmal atrial fibrillation Status: Chronic Assessment and plan: SEE PLAN OF CARE LISTED BELOW Current Visit: Yes (2) Abdominal pain Status: Acute Assessment and plan: SEE PLAN OF CARE LISTED BELOW Current Visit: Yes (3) Abnormal CT of the abdomen Status: Acute Assessment and plan: SEE PLAN OF CARE LISTED BELOW Current Visit: Yes (4) Constipation Status: Chronic Assessment and plan: SEE PLAN OF CARE LISTED BELOW Current Visit: No (5) Essential hypertension Status: Chronic Assessment and plan: SEE PLAN OF CARE LISTED BELOW Current Visit: No (6) GERD (gastroesophageal reflux disease) Status: Chronic Assessment and plan: SEE PLAN OF CARE LISTED BELOW Current Visit: No (7) Hyperlipidemia Status: Chronic Assessment and plan: SEE PLAN OF CARE LISTED BELOW Current Visit: No (8) Hypokalemia Status: Acute Assessment and plan: SEE PLAN OF CARE LISTED BELOW Current Visit: Yes (9) CAD (coronary artery disease) Status: Chronic Assessment and plan: SEE PLAN OF CARE LISTED BELOW. Current Visit: No (10) Systolic dysfunction, left ventricle Status: Chronic Assessment and plan: SEE PLAN OF CARE LISTED BELOW. Current Visit: No Cardiology - PN: Subj Interval history: Shopper Marketing Manager: Dr. Sewell SUMMARY - Ms. Buckner is a 77 year old female who has a history of multiple medical problems including paroxysmal atrial fibrillation, constipation, hyperlipidemia, and hypertension. She came to the hospital for evaluation and was noted to have paroxysmal atrial fibrillation. She is now back in sinus rhythm. She has some chronic constipation and CT scan shows a colonic stricture with the presence of diverticulosis. Gastroenterology has been consulted to evaluate her. MAY 16, 2017 UPDATE - Patient was seen and examined on the telemetry unit. She is doing well this morning and is without complaints. She is currently in normal sinus rhythm with heart rates in the 50s. Per nursing staff, her calcium channel adrian had to be held due to bradycardia. At this time, I will decrease her calcium channel adrian slightly. She reports that her abdominal pain is improving. GI is currently working this up. Plan for C scope tomorrow morning. Vital signs are stable. I will discuss this with Dr. Webster and await his additional recommendations. ASSESSMENT/PLAN : 1. PAROXYSMAL ATRIAL FIBRILLATION - Patient has a normal sinus rhythm. Cardizem was increased from 120 daily to 240 daily yesterday. Nursing staff reports that they had to hold calcium channel adrian this morning due to heart rates in the low 50s. At this time, I will decrease calcium channel adrian to 180 daily. Continue beta-blockade. Chads vasc score of 4. Patient will need to be chronically anticoagulated. However, she is undergoing C scope tomorrow per GI. Will hold off on starting Eliquis until her GI workup is complete. 2. HYPERTENSION - This is under well control. Will continue current plan of care. 3. ABNORMAL CT ABDOMEN - Abdominal CT revealed colonic stricture with presence of diverticulosis. This is currently being worked up per gastroenterology. Plan for C scope tomorrow. 4. CHRONIC CONSTIPATION - Continue laxatives. Management per GI. 5. HYPOKALEMIA - Replace per protocol. 6. GERD - Continue current plan of care with PPI. 7. HISTORY OF CAD - This appears to be clinically stable. Will continue current plan of care with beta-adrian and low-dose aspirin. 8. SYSTOLIC DYSFUNCTION, LEFT VENTRICLE - Clinically stable this hospitalization. Most recent ejection fraction noted to be 35-40%. Continue current plan of care with JOSSELIN inhibitor and beta-adrian. Further plan and addendum to follow per Dr. Webster. Exam (Progress Note) - Constitutional Vitals: Period Temp Pulse Resp BP Sys/Alba Pulse Ox Last 24 Hr 97.6 F-99.2 F 58-99 14-20 103-126/55-72 92-96 Exam: General: Appears well with no apparent distress. Pleasant and cooperative. Appears comfortable. HEENT: PERRL, normocephalic, atraumatic. Mucous membranes moist. No jaundice noted. Conjunctiva moist and clear, sclerae anicteric Neck: No JVD/HJR, no thyromegaly or lymphadenopathy noted. No carotid bruit appreciated Cardiac: Regular rate and rhythm. 2/6 systolic murmur. No rub or gallop noted. Lungs: Clear to auscultation without accessory muscle use to assist the respiratory pattern. Not requiring oxygen. Abdomen: Soft, hypoactive bowel sounds. Mild tenderness. Extremities: No clubbing, cyanosis noted. No edema noted. Upper extremity pulses 2+. Lower extremity pulses 2+. Capillary refill less than 3 seconds. Skin: No unusual lesions or rashes. No skin breakdown appreciated. Neuro: Awake, alert and oriented 3. Moves all extremities well without hemiparesis or paralysis. No essential tremor is appreciated. Result/EKG - Labs CBC & BMP: 05/14/17 07:19 05/15/17 11:14 Lab Results: I have reviewed the past 24 hour labs Labs: Laboratory Results - last 24 hr 05/15/17 05/15/17 11:14 11:50 Sodium 145 Potassium 3.4 L Chloride 112 H Carbon Dioxide 26 Anion Gap 10.4 BUN 10 Creatinine 0.90 GFR Calculation 66 BUN/Creatinine Ratio 11.00 Glucose 88 Calculated Osmolality 285.7 Calcium 8.2 L Magnesium 2.4 Urine Color Straw Urine Appearance Clear Urine pH 6.0 Ur Specific [place] 1.002 Urine Protein Negative Urine Glucose (UA) Negative Urine Ketones Negative Urine Blood Negative Urine Nitrate Negative Urine Bilirubin Negative Urine Urobilinogen < 2.0 H Urine Leukocytes Negative Urine RBC <1 Urine WBC <1 Ur Squamous Epith Cells Occasional Urine Bacteria Occasional Ur Culture Indicated? Not indicated <Shane Webster - Last Filed: 05/16/17 11:29> Cardiology - PN: Subj Interval history: Cardiology addendum Patient examined chart reviewed and discussed with nurse Ania Triana RN. Patient converted chemically with Cardizem Still has some left lower quadrant pain O2 sat 97% room air Plan Colonoscopy tomorrow Continue diltiazem 120 mg daily, Zebeta 5 mg daily Observe rhythm and monitor Exam (Progress Note) - Constitutional Vitals: Period Temp Pulse Resp BP Sys/Alba Pulse Ox Last 24 Hr 97.6 F-99.2 F 58-99 14-20 103-126/55-72 92-96 Result/EKG - Labs CBC & BMP: 05/14/17 07:19 05/16/17 09:21 Labs: Laboratory Results - last 24 hr 05/15/17 05/15/17 05/16/17 11:14 11:50 09:21 Sodium 145 145 Potassium 3.4 L 4.2 Chloride 112 H 109 H Carbon Dioxide 26 29 Anion Gap 10.4 11.2 BUN 10 5 L Creatinine 0.90 0.90 GFR Calculation 66 66 BUN/Creatinine Ratio 11.00 5.00 L Glucose 88 97 Calculated Osmolality 285.7 284.7 Calcium 8.2 L 8.5 Magnesium 2.4 2.5 H Urine Color Straw Urine Appearance Clear Urine pH 6.0 Ur Specific [place] 1.002 Urine Protein Negative Urine Glucose (UA) Negative Urine Ketones Negative Urine Blood Negative Urine Nitrate Negative Urine Bilirubin Negative Urine Urobilinogen < 2.0 H Urine Leukocytes Negative Urine RBC <1 Urine WBC <1 Ur Squamous Epith Cells Occasional Urine Bacteria Occasional Ur Culture Indicated? Not indicated
[2017-05-16] MEDS: DILTIAZEM CD 180 MG CAPSULE PO SCH (09:36)
[2017-05-16] MEDS: LACTOBACILLUS ACIDOPHILUS/BULGARICUS CHEW TABLET PO SCH (09:36)
[2017-05-16 10:01] LABS: Calcium 8.5 MG/DL (8.5-10.1); Magnesium 2.5 MG/DL (1.8-2.4); Osmolality,Calculated 284.7 MOS/KG (273-304); Potassium 4.2 MMOL/L (3.5-5.1)
--- NOTE | 2017-05-16 10:41 | Gastrointestinal Progress Note ---
<Raysa Ordaz - Last Filed: 05/16/17 10:39> Assessment and Plan (1) Abnormal CT of the abdomen Status: Acute Assessment and plan: 05/16-Pt with good BM yesterday, complaints of LUQ abd pain overnight. Will start c-scope prep now and plan to proceed on tomorrow. Also pt noted with orders for repeat abd US tomorrow morning after discussion with Carole BOUDREAUX. Plan and addendum to follow by Dr Lynn. Current Visit: Yes Gastroenterology - PN: Subj Interval history: CC: Abnormal CT Pt is seen awake and alert lying in bed. States she is feeling better today however did have some upper, left quadrant abdominal pain overnight. She had good bowel movement on yesterday with the Mirilax. She states she feels she is ready to start the prep for her colonoscopy today. Abdomen is soft, nontender. ROS: Denies SOB or chest pain Exam (Progress Note) - Constitutional Vitals: Period Temp Pulse Resp BP Sys/Alba Pulse Ox Last 24 Hr 97.6 F-99.2 F 58-99 14-20 103-126/55-72 92-96 General appearance: normal weight, no acute distress - Head Head exam: Present: normal inspection, normocephalic - Eye Eye exam: Present: other (lids and conjunctiva unremarkable). Absent: scleral icterus - ENT ENT exam: Present: normal exam, normal oropharynx - Neck Neck exam: Present: normal inspection - Respiratory Respiratory exam: Present: clear to auscultation bilaterally. Absent: rales, rhonchi, wheezes - Cardiovascular Cardiovascular exam: Present: regular rate and rhythm. Absent: diastolic murmur , JVD, systolic murmur - GI/Abdominal GI/Abdominal exam: Present: normal bowel sounds, soft. Absent: ascites, distended, mass, organomegaly, tenderness - Extremities Exam Extremities exam: Present: normal inspection, full ROM - Back Exam Back exam: Present: normal inspection - Neurological Exam Neurological exam: Present: alert, oriented X3 - Psychiatric Psychiatric exam: Present: normal affect, normal mood - Skin Skin exam: Present: normal color, warm, dry Results - Labs CBC & BMP: 05/14/17 07:19 05/16/17 09:21 Lab Results: I have reviewed the past 24 hour labs <Fabian Lynn - Last Filed: 05/16/17 18:00> Assessment and Plan (1) Abnormal CT of the abdomen Status: Acute Current Visit: Yes (2) Constipation Status: Chronic Current Visit: No (3) GERD (gastroesophageal reflux disease) Status: Chronic Current Visit: No Exam (Progress Note) - Constitutional Vitals: Period Temp Pulse Resp BP Sys/Alba Pulse Ox Last 24 Hr 97.6 F-99.2 F 58-62 14-20 107-139/57-82 92-96 Results - Labs CBC & BMP: 05/14/17 07:19 05/16/17 09:21
[2017-05-16] MEDS ORDERED: BISACODYL 5 MG TABLET PO ONE (10:43)
[2017-05-16] MEDS ORDERED: DILTIAZEM CD 120 MG CAPSULE PO ONE (11:15)
[2017-05-16] MEDS ORDERED: POLYETHYLENE GLYCOL POWDER 255 GM BOTTLE PO ONE (11:30)
--- NOTE | 2017-05-16 15:16 | Hospitalist Progress Note ---
Assessment and Plan - Time spent with patient Time spent with patient: Less than 30 minutes (1) CAD (coronary artery disease) Status: Chronic Assessment and plan: 77-year-old white female with history of paroxysmal A. fib, constipation, hyperlipidemia, and hypertension admitted by the hospitalist service with Laron sanabria with RVR and abdominal pain. Cardiology has seen the patient she is now back in sinus rhythm. Her CT scan did show some chronic constipation and she has had multiple bowel movements. GI is following the patient and Dr. Lynn is performing a C scope in the morning. Her hypokalemia has resolved. Patient' s continues to have complaints of right upper quadrant abdominal pain so we will order a gallbladder ultrasound in the morning prior to her C scope. Dr. Mock will see and examine patient and further recommendations to follow. Current Visit: No (2) Constipation Status: Chronic Current Visit: No (3) Hyperlipidemia Status: Chronic Current Visit: No (4) Abdominal pain Status: Acute Current Visit: Yes (5) Paroxysmal atrial fibrillation Status: Chronic Current Visit: Yes (6) Hypokalemia Status: Acute Current Visit: Yes Hospitalist: Subjective Interval history: Ms. christina is feeling better this morning. She has no complaints of nausea or vomiting but is still having some right upper quadrant abdominal pain. Patient states she has had multiple bowel movements all day yesterday but so far nothing today. Exam - Constitutional Vitals: Period Temp Pulse Resp BP Sys/Alba Pulse Ox Last 24 Hr 97.6 F-99.2 F 58-62 14-20 107-139/55-77 92-96 Exam: 77-year-old white female, no acute distress, alert and oriented Chest clear CV regular rate and rhythm Abdomen soft, mildly tender right upper quadrant with deep palpation Extremities no edema Results - Labs CBC & BMP: 05/14/17 07:19 05/16/17 09:21 Lab Results: I have reviewed the past 24 hour labs
[2017-05-16] MEDS: ONDANSETRON 4 MG/2 ML VIAL IV PRN (15:30)
[2017-05-16] MEDS ORDERED: MAGNESIUM CITRATE 300 ML BOTTLE PO ONE (18:30)
[2017-05-16] MEDS: GABAPENTIN 600 MG TABLET PO SCH (20:13)
[2017-05-16] MEDS: LISINOPRIL 5 MG TABLET PO SCH (20:14)
[2017-05-17 05:08] LABS: Basophils % 0.6 % (0.0-0.8); Eosinophils # 0.2 10*3/uL (0.0-0.87); Eosinophils % 2.4 % (0.00-10.9); Hematocrit 42.3 VOL% (35.7-47.0); Hemoglobin 13.8 GM/DL (12.0-16.0); Immature Granulocytes % 0.3 %; Immature Granulocytes Absolute 0.02 #; Lymphocytes # 2.1 10*3/uL (1.4-4.0); Lymphocytes % 33.2 % (21.3-54.2); Mean Corpuscular HGB Conc 32.6 GM/DL (32-36); Mean Corpuscular Hemoglobin 31 PG (27-34); Mean Corpuscular Volume 94.4 FL (87-102); Mean Platelet Volume 9.7 FL (9.6-12.0); Monocytes # 0.6 10*3/uL (0.11-0.8); Monocytes % 9.8 % (1.7-12.7); Neutrophils # 3.4 10*3/uL (1.4-7.4); Neutrophils % 53.7 % (38.7-73.9); Platelet Count 195 T/CUMM (130-400); Red Blood Count 4.48 MC/CUMM (3.8-5.5); Red Cell Distribution Width 13.2 % (9.3-17.3); White Blood Count 6.4 T/CUMM (4-12)
[2017-05-17] MEDS: ONDANSETRON 4 MG/2 ML VIAL IV PRN (05:08)
[2017-05-17 05:10] LABS: Calcium 8.9 MG/DL (8.5-10.1); Magnesium 2.3 MG/DL (1.8-2.4); Potassium 3.5 MMOL/L (3.5-5.1)
[2017-05-17] MEDS: LEVOTHYROXINE 50 MCG TABLET PO SCH (06:51)
--- NOTE | 2017-05-17 08:07 | Discharge Summary ---
<Esme Barfield - Last Filed: 05/17/17 08:00> Hospital Course - Hospital Course Hospital Course: This is a very pleasant 77-year-old female that presented to the ED at [facility] per EMS on May 13, 2017 for the evaluation of abdominal pain. The patient has a medical history significant for: Coronary artery disease, hyperlipidemia, sciatica, hyperlipidemia, diverticulitis, diverticulosis, migraine headaches, transient ischemic attacks, vertigo, chronic ear tract infections, chronic neck and back pain, neuropathy, atrial fibrillation with rapid ventricular response, essential hypertension, and chronic constipation. Patient has a surgical history significant for some bilateral cataract removal, esophageal dilation, colonoscopy, and lumbar surgery. The patient reported the onset of the above complaints on earlier today. The patient described the pain as "very severe" that initially radiated across her entire abdomen; then gradually progressed to intermittent left upper quadrant pain. In addition, the patient reports that the pain increases with movement and inhalation. She reported that she has experienced intermittent chills, cough, and left-sided back pain. She described her cough as productive in the mornings with a yellow mucus production. At the time of ED presentation, the patient was assessed. Labs were obtained; hematology reported white blood cell count at 5.0, hemoglobin at 14.3, hematocrit 41.1, and platelet count of 200. Chemistry profile reported; sodium 142, potassium 3.7, chloride 107, carbon dioxide 27, anion gap 11.7, BUN 15, creatinine 1.00, glucose 90 benign, calculated osmolality 283.1, calcium 9.4, magnesium 2.6, total bilirubin 0.40, AST 19, ALT 22, alkaline phosphatase 64, total protein 7.4, albumin 4.0, lipase 240.0. Urinalysis was essentially unremarkable.Chest x-ray was obtained; which was significant for chronic scarring and minimal atelectasis at the lung bases. CT abdomen and pelvis suggested a large amount of stool in the colon suggesting constipation. A small area of relative narrowing of the sigmoid colon was noted which could be artifactual or related to peristalsis or could represent underlying mild colonic stricture. Diverticulitis was present without john diverticulosis. After brief discussion with Dr. Hercules and , the patient was be admitted to the hospitalist services for continuation of care. We will consult gastroenterology to evaluate and assist during the clinical encounter. Shortly after the physical assessment, the patient notified the nursing staff "heart flutters"; an EKG was obtained and the patient was noted to be in atrial fibrillation with a rate of 120. Cardizem was given slow intravenous push for rate control and the patient was subsequently transferred to the telemetry unit for close observation. A cardiology consultation was requested. The patient was seen and evaluated by cardiology. Upon review by cardiology, the patient was noted to be in normal sinus rhythm. However cardiology recommended the initiation of a anticoagulant agent to assist in the management of her atrial fibrillation. The patient was evaluated by gastroenterology. Due to her strong family history of colon cancer, a colonoscopy was recommended. I have seen Mrs Buckner several times today and have formed the discharge plan and completed this discharge summary. I agree with the narrative above. In [facility] her afib is under control and her cscope yielded biopsis that showed focal superficial ulceration and hyperplastic polyp. Dr Lynn will see her in his clinic and plan repeat cscope in 3 months. Her discharge was held so we could get the path back before discharge. Dr Lynn wants her to wait a week to start anticoagulation with Eliquis for her afib. She will see him in clinic to see if daily laxatives are working or whether she needs surgery for her diverticular strictures. She will also see Dr Sewell in the clinic. Her PCP is Dr Guo and she will ofollow up with him also. Diagnosis - Discharge Diagnosis (1) Abdominal pain Status: Acute (2) Constipation Status: Chronic (3) Atrial fibrillation, chronic Status: Acute Specialty Discharge - Follow Up or Referrals Follow up with: Quintin Sewell MD [Physician] - 2 Weeks (Patient will need follow-up appointment with Dr. Sewell in approximately 2 weeks with CBC, BMP, magnesium and EKG.) Fabian Lynn MD [Physician] - 1 Month Kamari Guo MD [Primary Care Provider] - 5 Days Discharge Plan - Discharge Data Disposition: Disch To Home/Self Care - Discharge Medications New Ascorbic Acid Tab [Vitamin C Tab] 1,000 mg PO BID tablet Diltiazem Cd Cap [Cardizem CD] 180 mg PO DAILY capsule Polyethylene Glycol Powder [Miralax] 17 gm PO BID Apixaban [Eliquis] 2.5 mg PO BID #60 tablet Aspirin EC Tab 81 mg PO DAILY tablet Continue Omeprazole [Prilosec] 20 mg PO QAM Bisoprolol [Zebeta] 5 mg PO QAM Merrill-3 Acid Ethyl Esters 1 gm PO QAM DULoxetine [Cymbalta] 30 mg PO BID Lactobacillus Combo No.6 [Probiotic Complex] 1 each PO QAM Lisinopril [Prinivil] 5 mg PO BEDTIME Gabapentin Cap/Tab [Neurontin Cap/Tab] 600 mg PO BEDTIME Levothyroxine Tab [Synthroid Tab] 50 mcg PO DAILY@0600 Discontinued Diltiazem Cd Cap [Cardizem CD] 120 mg PO QAM - Follow Up or Referral Follow Up: Quintin Sewell MD [Physician] - 2 Weeks (Patient will need follow-up appointment with Dr. Sewell in approximately 2 weeks with CBC, BMP, magnesium and EKG.) - Forms/Instructions Exam - Constitutional Vitals: Period Temp Pulse Resp BP Sys/Alba Pulse Ox Last 24 Hr 97.2 F-99.3 F 58-71 16-20 106-133/63-71 92-98 Discharge Results Procedures and tests throughout hospitalization: Pending Orders 05/19/17 04:00 BMP w/ Mg [Basic Metabolic Panel w/Mg] IN AM CBC [Comp Blood Count Auto Diff] IN AM 05/20/17 04:00 BMP w/ Mg [Basic Metabolic Panel w/Mg] IN AM CBC [Comp Blood Count Auto Diff] IN AM Labs on day of discharge: Labs from last 24 hours 05/18/17 05/18/17 03:21 03:21 WBC 4.9 RBC 4.02 Hgb 12.4 Hct 37.2 MCV 92.5 MCH 31 MCHC 33.3 RDW 13.1 Plt Count 181 MPV 9.9 Neut % (Auto) 44.8 Lymph % (Auto) 39.8 Smith % (Auto) 11.1 Eos % (Auto) 3.3 Baso % (Auto) 0.6 Neut # (Auto) 2.2 Lymph # (Auto) 1.9 Smith # (Auto) 0.5 Eos # (Auto) 0.2 Baso # (Auto) 0.0 Immature Gran % 0.4 Nucleated RBC % 0.0 Immature Gran # 0.02 Nucleated RBCs # 0.00 Sodium 146 H Potassium 4.0 Chloride 110 H Carbon Dioxide 29 Anion Gap 11.0 BUN 12 Creatinine 1.00 GFR Calculation 58 BUN/Creatinine Ratio 12.00 Glucose 91 Calculated Osmolality 289.6 Calcium 8.8 Magnesium 2.4 DS: Provider Date of admission: 05/13/17 17:48 Primary care physician: Kamari Guo MD Attending physician on admission: Song Pepe DO Consults: 05/13/17 18:17 Consult to Physician [CONS] Routine Comment: Consulting Provider: Fabian Lynn When should Consulting Provider be notified: In am 05/13/17 18:18 Consult to Physician [CONS] Routine Comment: Consulting Provider: Raymundo Amaro When should Consulting Provider be notified: In am Person Notified: Agbbi at [employer] answering service Date Notified: 05/14/17 Time Notified: 07:33 05/14/17 12:09 Consult to Physical Therapy [CONS] Routine Reason for Physical Therapy: Evaluate and Treat Discharging clinician: Esme Barfield CNP <Chelo Mock - Last Filed: 05/18/17 15:32> Hospital Course - Time spent with patient Time with patient DS: Greater than 30 minutes (45 minutes were spent in discharge planning an dcoordination of care, medicine reconciliation, documentation) Diagnosis - Discharge Diagnosis (1) Colon ulcer Status: Acute (2) Colon polyp Status: Acute (3) Colon stricture Status: Acute (4) Abdominal pain Status: Resolved (5) Atrial fibrillation with RVR Status: Resolved Discharge Plan - Discharge Data Condition at Discharge: Stable Discharge Diet: heart healthy Activity: resume usual activities as tolerated - Forms/Instructions Additional Discharge Instructions: start Eliquis in a week. Dr Lynn wants you to have a colonoscopy in 3 months. Exam - Constitutional General appearance: no acute distress, over weight - Head Head exam: Present: normocephalic, atraumatic - Eye Eye exam: Present: EOMI. Absent: scleral icterus - Respiratory Respiratory exam: Present: clear to auscultation bilaterally - Cardiovascular Cardiovascular exam: Present: regular rate and rhythm - GI/Abdominal GI/Abdominal exam: Present: normal bowel sounds, soft. Absent: tenderness - Extremities Exam Extremities exam: Absent: edema
--- NOTE | 2017-05-17 08:44 | Ultrasound Report ---
Exam: US gallbladder Date:05/17/2017 4:00 AM Indication: Right upper quadrant pain nausea Comparison: 01/27/2017 Findings: Liver: 13.9 cm. Hepatic and portal veins are unremarkable. No focal abnormalities. Gallbladder: Normal size shape and configuration without stones CBD: 3.1 mm Pancreas: Normal on images visualized Kidneys Right kidney: 8.1 x 4.5 x 5.1 cm. No hydronephrosis perinephric fluid collections or focal mass Left kidney: Not evaluated Aorta IVC: No obvious aneurysm with patent IVC Spleen: Not evaluated Ascites: None Impression: 1. Normal right upper quadrant sonogram Ultrasound images were stored and captured PROCEDURE INTERPRETED AT [facility] DEPARTMENT OF RADIOLOGY Final Report Signed by: Dr. Richard Hdz
--- NOTE | 2017-05-17 08:49 | Cardiology Progress Note ---
<Ania Triana - Last Filed: 05/17/17 08:47> Assessment and Plan (1) Paroxysmal atrial fibrillation Status: Chronic Assessment and plan: SEE PLAN OF CARE LISTED BELOW Current Visit: Yes (2) Abdominal pain Status: Acute Assessment and plan: SEE PLAN OF CARE LISTED BELOW Current Visit: Yes (3) Abnormal CT of the abdomen Status: Acute Assessment and plan: SEE PLAN OF CARE LISTED BELOW Current Visit: Yes (4) Constipation Status: Chronic Assessment and plan: SEE PLAN OF CARE LISTED BELOW Current Visit: No (5) Essential hypertension Status: Chronic Assessment and plan: SEE PLAN OF CARE LISTED BELOW Current Visit: No (6) GERD (gastroesophageal reflux disease) Status: Chronic Assessment and plan: SEE PLAN OF CARE LISTED BELOW Current Visit: No (7) Hyperlipidemia Status: Chronic Assessment and plan: SEE PLAN OF CARE LISTED BELOW Current Visit: No (8) Hypokalemia Status: Acute Assessment and plan: SEE PLAN OF CARE LISTED BELOW Current Visit: Yes (9) Systolic dysfunction, left ventricle Status: Chronic Assessment and plan: SEE PLAN OF CARE LISTED BELOW. Current Visit: No Cardiology - PN: Subj Interval history: Crew Mess Attendant: Dr. Sewell SUMMARY - Ms. Buckner is a 77 year old female who has a history of multiple medical problems including paroxysmal atrial fibrillation, constipation, hyperlipidemia, and hypertension. She came to the hospital for evaluation and was noted to have paroxysmal atrial fibrillation. She is now back in sinus rhythm. She has some chronic constipation and CT scan shows a colonic stricture with the presence of diverticulosis. Gastroenterology has been consulted to evaluate her. MAY 17, 2017 UPDATE - Patient was seen and examined on the telemetry unit. She is doing well this morning and is without complaints. She is currently in normal sinus rhythm with heart rates in the 60s. Patient denies chest pain, heaviness and tightness. She is also without heart racing/palpitations. She is to undergo C scope and gallbladder ultrasound this morning per gastroenterology. Chads vasc score of 4. Patient will need to be chronically anticoagulated. However, she is undergoing C scope this morning per GI. Will hold off on starting Eliquis until her GI workup is complete. If okay with gastroenterology, recommend starting Eliquis 2.5 mg twice daily in order to provide stroke prevention prior to discharge. Vital signs are stable. I will discuss this with Dr. Webster and await his additional recommendations. ASSESSMENT/PLAN : 1. PAROXYSMAL ATRIAL FIBRILLATION - Patient now converted to normal sinus rhythm. Continue current plan of care with calcium channel adrian and beta blockade. Chads vasc score of 4. Patient will need to be chronically anticoagulated. However, she is undergoing C scope this morning per GI. Will hold off on starting Eliquis until her GI workup is complete. If okay with gastroenterology, recommend starting Eliquis 2.5 mg twice daily in order to provide stroke prevention. 2. HYPERTENSION - This is under well control. Will continue current plan of care. 3. ABNORMAL CT ABDOMEN - Abdominal CT revealed colonic stricture with presence of diverticulosis. This is currently being worked up per gastroenterology. Plan for C scope and gallbladder ultrasound this morning. 4. CHRONIC CONSTIPATION - Continue laxatives. Management per GI. 5. HYPOKALEMIA - Replace per protocol as needed. 6. GERD - Continue current plan of care with PPI. 7. SYSTOLIC DYSFUNCTION, LEFT VENTRICLE - Nonischemic cardiomyopathy. Most recent heart catheterization was performed August [address] Sewell. No obstructive CAD was noted at that time. Clinically stable this hospitalization. Most recent ejection fraction noted to be 35-40%. Continue current plan of care with JOSSELIN inhibitor and beta-adrian. Further plan and addendum to follow per Dr. Webster. Exam (Progress Note) - Constitutional Vitals: Period Temp Pulse Resp BP Sys/Alba Pulse Ox Last 24 Hr 97.2 F-97.8 F 61-75 16-20 117-151/65-82 90-96 Exam: General: Appears well with no apparent distress. Pleasant and cooperative. Appears comfortable. HEENT: PERRL, normocephalic, atraumatic. Mucous membranes moist. No jaundice noted. Conjunctiva moist and clear, sclerae anicteric Neck: No JVD/HJR, no thyromegaly or lymphadenopathy noted. No carotid bruit appreciated Cardiac: Regular rate and rhythm. 2/6 systolic murmur. No rub or gallop noted. Lungs: Clear to auscultation without accessory muscle use to assist the respiratory pattern. Not requiring oxygen. Abdomen: Soft, hypoactive bowel sounds. Mild tenderness. Extremities: No clubbing, cyanosis noted. No edema noted. Upper extremity pulses 2+. Lower extremity pulses 2+. Capillary refill less than 3 seconds. Skin: No unusual lesions or rashes. No skin breakdown appreciated. Neuro: Awake, alert and oriented 3. Moves all extremities well without hemiparesis or paralysis. No essential tremor is appreciated. Result/EKG - Labs CBC & BMP: 05/17/17 04:41 05/17/17 04:41 Lab Results: I have reviewed the past 24 hour labs Labs: Laboratory Results - last 24 hr 05/16/17 05/17/17 05/17/17 09:21 04:41 04:41 WBC 6.4 RBC 4.48 Hgb 13.8 Hct 42.3 MCV 94.4 MCH 31 MCHC 32.6 RDW 13.2 Plt Count 195 MPV 9.7 Neut % (Auto) 53.7 Lymph % (Auto) 33.2 [place] % (Auto) 9.8 Eos % (Auto) 2.4 Baso % (Auto) 0.6 Neut # (Auto) 3.4 Lymph # (Auto) 2.1 [place] # (Auto) 0.6 Eos # (Auto) 0.2 Baso # (Auto) 0.0 Immature Gran % 0.3 Nucleated RBC % 0.0 Immature Gran # 0.02 Nucleated RBCs # 0.00 Sodium 145 143 Potassium 4.2 3.5 Chloride 109 H 111 H Carbon Dioxide 29 23 Anion Gap 11.2 12.5 BUN 5 L 4 L Creatinine 0.90 0.90 GFR Calculation 66 66 BUN/Creatinine Ratio 5.00 L 4.00 L Glucose 97 111 H Calculated Osmolality 284.7 282.0 Calcium 8.5 8.9 Magnesium 2.5 H 2.3 Specialty Discharge - Follow Up or Referrals Follow up with: Quintin Sewell MD [Physician] - 2 Weeks (Patient will need follow-up appointment with Dr. Sewell in approximately 2 weeks with CBC, BMP, magnesium and EKG.) <Shane Webster - Last Filed: 05/17/17 12:23> Cardiology - PN: Subj Interval history: Cardiology addendum Patient examined and chart reviewed. Remains in steady sinus rhythm. No further atrial fib. Colonoscopy showed a sending colon ulceration, nonbleeding AVMs, diverticulosis of the sigmoid colon and rectal polyps. Plan Monitor Await biopsies Exam (Progress Note) - Constitutional Vitals: Period Temp Pulse Resp BP Sys/Alba Pulse Ox Last 24 Hr 96.4 F-97.8 F 60-75 16-20 117-154/65-064 90-100 Result/EKG - Labs CBC & BMP: 05/17/17 04:41 05/17/17 04:41 Labs: Laboratory Results - last 24 hr 05/17/17 05/17/17 04:41 04:41 WBC 6.4 RBC 4.48 Hgb 13.8 Hct 42.3 MCV 94.4 MCH 31 MCHC 32.6 RDW 13.2 Plt Count 195 MPV 9.7 Neut % (Auto) 53.7 Lymph % (Auto) 33.2 [place] % (Auto) 9.8 Eos % (Auto) 2.4 Baso % (Auto) 0.6 Neut # (Auto) 3.4 Lymph # (Auto) 2.1 [place] # (Auto) 0.6 Eos # (Auto) 0.2 Baso # (Auto) 0.0 Immature Gran % 0.3 Nucleated RBC % 0.0 Immature Gran # 0.02 Nucleated RBCs # 0.00 Sodium 143 Potassium 3.5 Chloride 111 H Carbon Dioxide 23 Anion Gap 12.5 BUN 4 L Creatinine 0.90 GFR Calculation 66 BUN/Creatinine Ratio 4.00 L Glucose 111 H Calculated Osmolality 282.0 Calcium 8.9 Magnesium 2.3
[2017-05-17] MEDS ORDERED: LIDOCAINE 1% 5 ML VIAL ONE (11:00)
[2017-05-17] MEDS ORDERED: PROPOFOL 200 MG/20 ML VIAL IV ONE (11:00)
--- NOTE | 2017-05-17 11:24 | History and Physical Update ---
History and Physical Update - Physical Exam Mental Status: alert and oriented Heart: regular rate and rhythm Lung: clear to auscultation Abdomen: within normal limits Vitals: within normal limits
--- NOTE | 2017-05-17 11:28 | Operative Note ---
Date of procedure: 05/17/17 Pre-op diagnosis: Abnormal CT Procedure: Colonoscopy with biopsy and polypectomy 77-year-old female was admitted with abdominal pain found to have significant fecal impaction and abnormal CT suggestive of sigmoid obstruction. She has a family history of colon cancer in her sister as well. She is now for colonoscopy to further evaluate. Informed symptoms obtained patient She was sedated with MAC anesthesia per anesthesia protocol. Patient was placed in left lateral decubitus position digital exam revealed no rectal masses normal tone. The Olympus flexible video colonoscope was inserted into the anal canal under direct vision was advanced through the colon. There is significant diverticular scarring in the sigmoid colon making transit somewhat difficult but we were able to ultimately intubate the cecum. Withdrawal time 10-1/2 minutes Prep fair Findings: Cecum-limited prep no masses seen. AVMs are noted without active bleeding. Ileocecal valve appendiceal orifice were identified. Terminal ileum-normal Ascending colon-AVMs without bleeding are noted. In the mid proximal ascending colon there is a linear area approximately 6 cm in length of ulceration of unclear etiology biopsies were taken. No associated mass was seen Transverse colon-diverticulosis Descending colon-diverticulosis Sigmoid colon diverticulosis with area of severe scarring mid sigmoid colon likely corresponding to the area seen on CT Rectum-polyps 2 each hot biopsy fulgurated. The procedure terminated placed our procedure well she is discharged recovery in good condition. Postop diagnoses 1. Ascending ulceration of unclear [id number] path when available would be unusual for this to be an ischemic ulcer in this portion of the colon however the possibility of stercoral ulcer may be entertained from impaction. Will need to exclude malignancy. 2. AVMs-no active bleeding monitor H&H 3. Diverticulosis with sigmoid scarring-likely area of CT scan abnormality continue with laxatives and if ineffective may need to consider sigmoid colectomy 4. Colon [id number] path Anesthesia: MAC Surgeon / Physician: Fabian Lynn Estimated blood loss: none Specimens: other (1. A ascending colon ulceration #2 rectal polyps) Condition: stable Disposition: post procedure unit Results - Labs CBC & BMP: 05/17/17 04:41 05/17/17 04:41 Discharge Plan - Discharge Medications No Action Omeprazole [Prilosec] 20 mg PO QAM Bisoprolol [Zebeta] 5 mg PO QAM [place]-3 Acid Ethyl Esters 1 gm PO QAM DULoxetine [Cymbalta] 30 mg PO BID Lactobacillus Combo No.6 [Probiotic Complex] 1 each PO QAM Lisinopril [Prinivil] 5 mg PO BEDTIME Gabapentin Cap/Tab [Neurontin Cap/Tab] 600 mg PO BEDTIME Diltiazem Cd Cap [Cardizem CD] 120 mg PO QAM Levothyroxine Tab [Synthroid Tab] 50 mcg PO DAILY@0600 - Follow Up or Referral Follow Up: Quintin Sewell MD [Physician] - 2 Weeks (Patient will need follow-up appointment with Dr. Sewell in approximately 2 weeks with CBC, BMP, magnesium and EKG.) - Forms/Instructions
--- NOTE | 2017-05-17 11:32 | Anesthesia Post-Op ---
Anesthesia Post OP - Post Ansesthetic Evaluation Patient seen in post op: Yes Resp: within normal limits CV: within normal limits Mental: within normal limits Temp: within normal limits [id number]: within normal limits Nausea and Vomiting: within normal limits Pain: within normal limits
[2017-05-17] MEDS: DEXTROSE 5% 1,000 ML IV SCH (12:10)
[2017-05-17] MEDS: BISOPROLOL 5 MG TABLET PO SCH (13:03)
[2017-05-17] MEDS: ASPIRIN EC 81 MG TABLET PO SCH (13:03)
[2017-05-17] MEDS: ASCORBIC ACID 500 MG TABLET PO SCH ×2 (13:03→20:35)
[2017-05-17] MEDS: OMEGA 3 ACID ETHYL ESTERS 1 GM CAPSULE PO SCH (13:03)
[2017-05-17] MEDS: DILTIAZEM CD 180 MG CAPSULE PO SCH (13:04)
[2017-05-17] MEDS: DULoxetine 30 MG CAPSULE PO SCH ×2 (13:04→20:36)
[2017-05-17] MEDS: PANTOPRAZOLE 40 MG TABLET PO SCH (13:04)
[2017-05-17] MEDS: POLYETHYLENE GLYCOL POWDER 17 GM PACK PO SCH ×2 (13:05→20:36)
[2017-05-17] MEDS: LACTOBACILLUS ACIDOPHILUS/BULGARICUS CHEW TABLET PO SCH (13:05)
--- NOTE | 2017-05-17 14:00 | Hospitalist Progress Note ---
Assessment and Plan (1) Colon ulcer Status: Acute Assessment and plan: doing well after cscope. awaiting path. see op report for details of findings of ulcer and polyp. Afib rate controlled- holding anticoagulation until GI work up complete. no chest tightness or heaviness as she reported yesterday. hypokalemia- replaced. Current Visit: Yes (2) Colon polyp Status: Acute Current Visit: Yes (3) Colon stricture Status: Acute Current Visit: Yes (4) Abdominal pain Status: Acute Current Visit: Yes (5) Atrial fibrillation with RVR Status: Acute Current Visit: No Hospitalist: Subjective Interval history: Mrs Buckner is doing ok after her cscope. I reviewed the findings with her and the plan to keep her until tomorrow for the path report. Exam - Constitutional Vitals: Period Temp Pulse Resp BP Sys/Alba Pulse Ox Last 24 Hr 96.4 F-97.8 F 60-75 16-20 117-154/64-064 90-100 General appearance: normal weight, no acute distress - Eye Eye exam: Present: EOMI. Absent: scleral icterus - Respiratory Respiratory exam: Present: clear to auscultation bilaterally - Cardiovascular Cardiovascular exam: Present: regular rate and rhythm - GI/Abdominal GI/Abdominal exam: Present: normal bowel sounds, soft. Absent: tenderness - Extremities Exam Extremities exam: Absent: edema Results - Labs CBC & BMP: 05/17/17 04:41 05/17/17 04:41 Specialty Discharge - Follow Up or Referrals Follow up with: Quintin Sewell MD [Physician] - 2 Weeks (Patient will need follow-up appointment with Dr. Sewell in approximately 2 weeks with CBC, BMP, magnesium and EKG.)
[2017-05-17] MEDS: LISINOPRIL 5 MG TABLET PO SCH (20:35)
[2017-05-17] MEDS: GABAPENTIN 600 MG TABLET PO SCH (20:35)
[2017-05-17] MEDS: diphenhydrAMINE CAP 25 MG CAPSULE PO PRN (20:37)
[2017-05-18 04:02] LABS: Basophils % 0.6 % (0.0-0.8); Eosinophils # 0.2 10*3/uL (0.0-0.87); Eosinophils % 3.3 % (0.00-10.9); Hematocrit 37.2 VOL% (35.7-47.0); Hemoglobin 12.4 GM/DL (12.0-16.0); Immature Granulocytes % 0.4 %; Immature Granulocytes Absolute 0.02 #; Lymphocytes # 1.9 10*3/uL (1.4-4.0); Lymphocytes % 39.8 % (21.3-54.2); Mean Corpuscular HGB Conc 33.3 GM/DL (32-36); Mean Corpuscular Hemoglobin 31 PG (27-34); Mean Corpuscular Volume 92.5 FL (87-102); Mean Platelet Volume 9.9 FL (9.6-12.0); Monocytes # 0.5 10*3/uL (0.11-0.8); Monocytes % 11.1 % (1.7-12.7); Neutrophils # 2.2 10*3/uL (1.4-7.4); Neutrophils % 44.8 % (38.7-73.9); Platelet Count 181 T/CUMM (130-400); Red Blood Count 4.02 MC/CUMM (3.8-5.5); Red Cell Distribution Width 13.1 % (9.3-17.3); White Blood Count 4.9 T/CUMM (4-12)
[2017-05-18 04:31] LABS: Calcium 8.8 MG/DL (8.5-10.1); Magnesium 2.4 MG/DL (1.8-2.4); Osmolality,Calculated 289.6 MOS/KG (273-304)
[2017-05-18] MEDS: LEVOTHYROXINE 50 MCG TABLET PO SCH (05:01)
--- NOTE | 2017-05-18 06:37 | XRay Report ---
Exam: XR chest 1V portable Date: 05/18/2017 1:02 AM Indication: Decreased oxygen saturations Comparison: 05/13/2017 Technical: AP portable Findings: External cardiac leads are present. The heart is normal in size. ASVD is present. A few reticular nodular densities are present in the infrahilar regions. Oxygen tubing is present. Mediastinum and bony structures are otherwise intact. Impression: 1. Mild scarring in the infrahilar regions without acute cardiopulmonary pathology. PROCEDURE INTERPRETED AT [facility] DEPARTMENT OF RADIOLOGY Final Report Signed by: Dr. Richard Hdz
[2017-05-18] MEDS: LACTOBACILLUS ACIDOPHILUS/BULGARICUS CHEW TABLET PO SCH (08:43)
[2017-05-18] MEDS: DULoxetine 30 MG CAPSULE PO SCH (08:43)
[2017-05-18] MEDS: OMEGA 3 ACID ETHYL ESTERS 1 GM CAPSULE PO SCH (08:43)
[2017-05-18] MEDS: DILTIAZEM CD 180 MG CAPSULE PO SCH (08:43)
[2017-05-18] MEDS: POLYETHYLENE GLYCOL POWDER 17 GM PACK PO SCH (08:43)
[2017-05-18] MEDS: ASCORBIC ACID 500 MG TABLET PO SCH (08:43)
[2017-05-18] MEDS: PANTOPRAZOLE 40 MG TABLET PO SCH (08:43)
[2017-05-18] MEDS: BISOPROLOL 5 MG TABLET PO SCH (08:43)
[2017-05-18] MEDS: ASPIRIN EC 81 MG TABLET PO SCH (08:43)
--- NOTE | 2017-05-18 09:20 | Hospitalist Progress Note ---
Assessment and Plan - Time spent with patient Time spent with patient: Less than 30 minutes (1) Colon polyp Status: Acute Assessment and plan: colonscopy done 05/17/17 awaiting results of biopsy - possible discharge today. Current Visit: Yes Hospitalist: Subjective Interval history: 05/18/17 patient doing well this a.m.; denies any problems during the night; awaiting results from c-scope; possible discharge home today. Exam - Constitutional Vitals: Period Temp Pulse Resp BP Sys/Alba Pulse Ox Last 24 Hr 96.4 F-99.3 F 58-71 16-20 106-154/63-064 92-100 General appearance: normal weight, no acute distress - Head Head exam: Present: normal inspection - Eye Eye exam: Present: EOMI Pupils: Present: ELIZABETH - Neck Neck exam: Present: normal inspection - Respiratory Respiratory exam: Present: clear to auscultation bilaterally - Cardiovascular Cardiovascular exam: Present: regular rate and rhythm - GI/Abdominal GI/Abdominal exam: Present: normal bowel sounds. Absent: guarding, tenderness, rebound - Extremities Exam Extremities exam: Present: normal inspection. Absent: edema - Neurological Exam Neurological exam: Present: alert, oriented X3, CN II-XII intact - Psychiatric Psychiatric exam: Present: normal affect - Skin Skin exam: Present: normal color, warm, dry Results - Labs CBC & BMP: 05/18/17 03:21 05/18/17 03:21 Lab Results: I have reviewed the past 24 hour labs - Impressions colonscopy performed 05/17/17 - with biopsy and polypectomy; waiting on results - Diagnostic Findings Procedure: Chest x-ray: report reviewed by me (mild scarring in the infrahilar regions [facility] acute cardiopulmonary pathology) Specialty Discharge - Follow Up or Referrals Follow up with: Quintin Sewell MD [Physician] - 2 Weeks (Patient will need follow-up appointment with Dr. Sewell in approximately 2 weeks with CBC, BMP, magnesium and EKG.)
--- NOTE | 2017-05-18 10:15 | Gastrointestinal Progress Note ---
<Raysa Ordaz - Last Filed: 05/18/17 10:12> Assessment and Plan (1) Abnormal CT of the abdomen Status: Acute Assessment and plan: 05/18-C scope findings noted as below. Complaints of mild left-sided abdominal pain this morning. Normal ultrasound. Pathology report still pending. Plan an addendum followed by Dr. Lynn. 05/16-Pt with good BM yesterday, complaints of LUQ abd pain overnight. Will start c-scope prep now and plan to proceed on tomorrow. Also pt noted with orders for repeat abd US tomorrow morning after discussion with Carole BOUDREAUX. Plan and addendum to follow by Dr Lynn. Current Visit: Yes Gastroenterology - PN: Subj Interval history: CC: Abnormal CT Patient is seen awake and alert lying in bed performing exercises with physical therapy. Colon scope findings on yesterday noted for a sending ulceration with pathology still pending today, AVMs without active bleeding, and diverticulosis as well as colon polyp with pathology pending. She states that she ate her breakfast this morning and had some left-sided abdominal pain and just feels continually bloated at this time. Denies any rectal or overt bleeding. Denies any nausea or vomiting. Abdomen is soft, nontender. We are awaiting pathology report at this time from her colon scope in her anticoagulant continues to be held until these results are returned. Also noted that her gallbladder ultrasound yesterday was reported as normal. ROS: Denies shortness of breath or chest pain Exam (Progress Note) - Constitutional Vitals: Period Temp Pulse Resp BP Sys/Alba Pulse Ox Last 24 Hr 97.0 F-99.3 F 58-71 16-20 106-143/63-064 92-100 General appearance: normal weight, no acute distress - Head Head exam: Present: normal inspection, normocephalic - Eye Eye exam: Present: other (Lids and conjunctive are unremarkable). Absent: scleral icterus - ENT ENT exam: Present: normal exam, normal oropharynx - Neck Neck exam: Present: normal inspection - Respiratory Respiratory exam: Present: clear to auscultation bilaterally. Absent: rales, rhonchi, wheezes - Cardiovascular Cardiovascular exam: Present: regular rate and rhythm. Absent: diastolic murmur , JVD, systolic murmur - GI/Abdominal GI/Abdominal exam: Present: normal bowel sounds, soft. Absent: ascites, distended, mass, organomegaly, tenderness - Extremities Exam Extremities exam: Present: normal inspection, full ROM - Back Exam Back exam: Present: normal inspection - Neurological Exam Neurological exam: Present: alert, oriented X3 - Psychiatric Psychiatric exam: Present: normal affect, normal mood - Skin Skin exam: Present: normal color, warm, dry Results - Labs CBC & BMP: 05/18/17 03:21 05/18/17 03:21 Lab Results: I have reviewed the past 24 hour labs Specialty Discharge - Follow Up or Referrals Follow up with: Quintin Sewell MD [Physician] - 2 Weeks (Patient will need follow-up appointment with Dr. Sewell in approximately 2 weeks with CBC, BMP, magnesium and EKG.) <Fabian Lynn - Last Filed: 05/18/17 10:19> Assessment and Plan (1) Abnormal CT of the abdomen Status: Acute Current Visit: Yes (2) Constipation Status: Chronic Current Visit: No (3) GERD (gastroesophageal reflux disease) Status: Chronic Current Visit: No Exam (Progress Note) - Constitutional Vitals: Period Temp Pulse Resp BP Sys/Alba Pulse Ox Last 24 Hr 97.0 F-99.3 F 58-71 16-20 106-143/63-064 92-100 Results - Labs CBC & BMP: 05/18/17 03:21 05/18/17 03:21
--- NOTE | 2017-05-18 10:49 | Cardiology Progress Note ---
<Ania Triana - Last Filed: 05/18/17 10:30> Assessment and Plan (1) Paroxysmal atrial fibrillation Status: Chronic Assessment and plan: SEE PLAN OF CARE LISTED BELOW Current Visit: Yes (2) Abdominal pain Status: Acute Assessment and plan: SEE PLAN OF CARE LISTED BELOW Current Visit: Yes (3) Abnormal CT of the abdomen Status: Acute Assessment and plan: SEE PLAN OF CARE LISTED BELOW Current Visit: Yes (4) Constipation Status: Chronic Assessment and plan: SEE PLAN OF CARE LISTED BELOW Current Visit: No (5) Essential hypertension Status: Chronic Assessment and plan: SEE PLAN OF CARE LISTED BELOW Current Visit: No (6) GERD (gastroesophageal reflux disease) Status: Chronic Assessment and plan: SEE PLAN OF CARE LISTED BELOW Current Visit: No (7) Hyperlipidemia Status: Chronic Assessment and plan: SEE PLAN OF CARE LISTED BELOW Current Visit: No (8) Hypokalemia Status: Acute Assessment and plan: SEE PLAN OF CARE LISTED BELOW Current Visit: Yes (9) Systolic dysfunction, left ventricle Status: Chronic Assessment and plan: SEE PLAN OF CARE LISTED BELOW. Current Visit: No (10) Colon polyp Status: Acute Assessment and plan: SEE PLAN OF CARE LISTED BELOW. Current Visit: Yes (11) Colon ulcer Status: Acute Assessment and plan: SEE PLAN OF CARE LISTED BELOW. Current Visit: Yes Cardiology - PN: Subj Interval history: Bio Medical Technician: Dr. Sewell SUMMARY - Ms. Buckner is a 77 year old female who has a history of multiple medical problems including paroxysmal atrial fibrillation, constipation, hyperlipidemia, and hypertension. She came to the hospital for evaluation and was noted to have paroxysmal atrial fibrillation. She is now back in sinus rhythm. She has some chronic constipation and CT scan shows a colonic stricture with the presence of diverticulosis. Gastroenterology has been consulted to evaluate her. MAY 18, 2017 UPDATE - Patient was seen and examined on the telemetry unit. She is doing well this morning and is without complaints. Patient underwent C scope yesterday which revealed ascending ulceration of unclear etiology. Pathology pending. AVMs were noted without active bleeding. Diverticulosis and colon polyp, pathology pending. Gallbladder ultrasound yesterday was normal. Patient denies chest pain, heaviness and tightness. She is also without heart racing/palpitations. She is currently in normal sinus rhythm with heart rates in the 60s. Chads vasc score of 4. Patient will need to be chronically anticoagulated. However, she is currently being worked up per GI. Will hold off on starting Eliquis until her GI workup is complete. If okay with gastroenterology, recommend starting Eliquis 2.5 mg twice daily in order to provide stroke prevention prior to discharge. H&H is stable. Vital signs are stable. I will discuss this with Dr. Webster and await his additional recommendations. ASSESSMENT/PLAN : 1. PAROXYSMAL ATRIAL FIBRILLATION - Patient now converted to normal sinus rhythm. Continue current plan of care with calcium channel adrian and beta blockade. Chads vasc score of 4. Patient will need to be chronically anticoagulated. However, she is currently being worked up per GI. Will hold off on starting Eliquis until her GI workup is complete. If okay with gastroenterology, recommend starting Eliquis 2.5 mg twice daily in order to provide stroke prevention. 2. HYPERTENSION - This is under well control. Will continue current plan of care. 3. ABNORMAL CT ABDOMEN - Abdominal CT revealed colonic stricture with presence of diverticulosis. This is currently being worked up per gastroenterology. 4. CHRONIC CONSTIPATION - Continue laxatives. Management per GI. 5. HYPOKALEMIA - Replace per protocol as needed. 6. GERD - Continue current plan of care with PPI. 7. SYSTOLIC DYSFUNCTION, LEFT VENTRICLE - Nonischemic cardiomyopathy. Most recent heart catheterization was performed [address] Sewell. No obstructive CAD was noted at that time. Clinically stable this hospitalization. Most recent ejection fraction noted to be 35-40%. Continue current plan of care with JOSSELIN inhibitor and beta-adrian. 8. COLON ULCER - Unclear etiology at this time. Pathology is pending. Management per GI. 9. COLON POLYP - Awaiting results of biopsy. 9. DIVERTICULOSIS - Clinically stable. Management per GI. Further plan and addendum to follow per Dr. Webster. Exam (Progress Note) - Constitutional Vitals: Period Temp Pulse Resp BP Sys/Alba Pulse Ox Last 24 Hr 97.0 F-99.3 F 58-71 16-20 106-143/63-064 92-100 Exam: General: Appears well with no apparent distress. Pleasant and cooperative. Appears comfortable. HEENT: PERRL, normocephalic, atraumatic. Mucous membranes moist. No jaundice noted. Conjunctiva moist and clear, sclerae anicteric Neck: No JVD/HJR, no thyromegaly or lymphadenopathy noted. No carotid bruit appreciated Cardiac: Regular rate and rhythm. 2/6 systolic murmur. No rub or gallop noted. Lungs: Clear to auscultation without accessory muscle use to assist the respiratory pattern. Not requiring oxygen. Abdomen: Soft, hypoactive bowel sounds. Mild tenderness. Extremities: No clubbing, cyanosis noted. No edema noted. Upper extremity pulses 2+. Lower extremity pulses 2+. Capillary refill less than 3 seconds. Skin: No unusual lesions or rashes. No skin breakdown appreciated. Neuro: Awake, alert and oriented 3. Moves all extremities well without hemiparesis or paralysis. No essential tremor is appreciated. Result/EKG - Labs CBC & BMP: 05/18/17 03:21 05/18/17 03:21 Lab Results: I have reviewed the past 24 hour labs Labs: Laboratory Results - last 24 hr 05/18/17 05/18/17 03:21 03:21 WBC 4.9 RBC 4.02 Hgb 12.4 Hct 37.2 MCV 92.5 MCH 31 MCHC 33.3 RDW 13.1 Plt Count 181 MPV 9.9 Neut % (Auto) 44.8 Lymph % (Auto) 39.8 [place] % (Auto) 11.1 Eos % (Auto) 3.3 Baso % (Auto) 0.6 Neut # (Auto) 2.2 Lymph # (Auto) 1.9 [place] # (Auto) 0.5 Eos # (Auto) 0.2 Baso # (Auto) 0.0 Immature Gran % 0.4 Nucleated RBC % 0.0 Immature Gran # 0.02 Nucleated RBCs # 0.00 Sodium 146 H Potassium 4.0 Chloride 110 H Carbon Dioxide 29 Anion Gap 11.0 BUN 12 Creatinine 1.00 GFR Calculation 58 BUN/Creatinine Ratio 12.00 Glucose 91 Calculated Osmolality 289.6 Calcium 8.8 Magnesium 2.4 Specialty Discharge - Follow Up or Referrals Follow up with: Quintin Sewell MD [Physician] - 2 Weeks (Patient will need follow-up appointment with Dr. Sewell in approximately 2 weeks with CBC, BMP, magnesium and EKG.) <Shane Webster - Last Filed: 05/18/17 11:39> Cardiology - PN: Subj Interval history: Cardiology addendum. Patient examined and chart reviewed. Telemetry shows steady sinus rhythm. No further atrial fib. Blood pressure 120/76 Regular rhythm no gallop Chest is clear Plan Biopsies pending Exam (Progress Note) - Constitutional Vitals: Period Temp Pulse Resp BP Sys/Alba Pulse Ox Last 24 Hr 97.0 F-99.3 F 58-71 16-20 106-143/63-061 92-100 Result/EKG - Labs CBC & BMP: 05/18/17 03:21 05/18/17 03:21 Labs: Laboratory Results - last 24 hr 05/18/17 05/18/17 03:21 03:21 WBC 4.9 RBC 4.02 Hgb 12.4 Hct 37.2 MCV 92.5 MCH 31 MCHC 33.3 RDW 13.1 Plt Count 181 MPV 9.9 Neut % (Auto) 44.8 Lymph % (Auto) 39.8 [place] % (Auto) 11.1 Eos % (Auto) 3.3 Baso % (Auto) 0.6 Neut # (Auto) 2.2 Lymph # (Auto) 1.9 [place] # (Auto) 0.5 Eos # (Auto) 0.2 Baso # (Auto) 0.0 Immature Gran % 0.4 Nucleated RBC % 0.0 Immature Gran # 0.02 Nucleated RBCs # 0.00 Sodium 146 H Potassium 4.0 Chloride 110 H Carbon Dioxide 29 Anion Gap 11.0 BUN 12 Creatinine 1.00 GFR Calculation 58 BUN/Creatinine Ratio 12.00 Glucose 91 Calculated Osmolality 289.6 Calcium 8.8 Magnesium 2.4
--- NOTE | 2017-05-18 13:27 | Pathology Report from [facility] ---
[facility] ACCESSION # : [id number] PATIENT NAME : Hannah Buckner ORDERING DR : ADELAIDE CNA MD CLINICAL HX: Abd pain, Abn CT scan POST-OP DX: SAme SPECIMEN INFO: #1 Ascending colon ulceration BX #2 Colon polyp (rectum) GROSS DESCRIPTION: Received in formalin in two parts labeled:#1 MAVIS BOUNDS & # 1 are two hyperemic mucosal tissue fragments measuring together 0.6 x 0.3 cm submitted in cassette #1.#2 MAVIS BOUNDS & #2 are tiny pink dalton fragments of mucosal tissue measuring 0.2 x 0.3 cm collectively, submitted in cassette #2. DIAGNOSIS FOR HANNAH BOUNDS: #1 ASCENDING COLONIC ULCERATION BIOPSY: Focal superficial ulceration, mild superficial chronic inflammation, focal adenomatous mucosal changes.#2 COLON POLYP RECTUM: Diminutive hyperplastic polyp. COLLECTED DATE: 05/17/2017 [facility] REPORT DATE: 05/18/2017 ELECTRONICALLY SIGNED BY: Laron Bowman M.D. 05/18/2017 - 11:17:31 [facility]
[2017-05-18 18:05] VITALS: BP 156/68
== END 2017-05-18 18:10 | disposition home or self-care (01) | DRG 394 ==
LOC: EDBD → EDUNIT# → N.ED 15:01 → N.EDINP 17:48 → SUATTDRO 17:48 → N.TELEN 19:06
PROVIDERS: ADMIT Internal Medicine; ATTEND Internal Medicine

== ENCOUNTER 2021-02-26 22:52 | Inpatient (IN) ==
[2021-02-26] MEDS ORDERED: ONDANSETRON 4 MG/2 ML VIAL IV STA (23:17)
[2021-02-26] MEDS ORDERED: PANTOPRAZOLE 40 MG VIAL IV STA (23:17)
[2021-02-26] MEDS ORDERED: HYDROmorphone 2 MG/1 ML VIAL IV STA (23:17)
[2021-02-26] MEDS ORDERED: SODIUM CHLORIDE 0.9% 500 ML IV STA (23:17)
[2021-02-26 23:34] LABS: Basophils % 0.6 % (0.0-0.8); Eosinophils # 0.1 10*3/uL (0.0-0.87); Eosinophils % 1.3 % (0.00-10.9); Hematocrit 40.6 VOL% (35.7-47.0); Hemoglobin 13.9 GM/DL (12.0-16.0); Immature Granulocytes % 0.4 %; Immature Granulocytes Absolute 0.02 #; Mean Corpuscular HGB Conc 34.2 GM/DL (32-36); Mean Platelet Volume 9.8 FL (9.6-12.0); Neutrophils % 69.7 % (38.7-73.9); Platelet Count 161 T/CUMM (130-400); Red Blood Count 4.46 MC/CUMM (3.8-5.5); Red Cell Distribution Width 13.1 % (9.3-17.3); White Blood Count 5.4 T/CUMM (4-12)
[2021-02-26 23:55] LABS: Albumin 3.6 G/DL (3.4-5.0); Bilirubin,Total 1.6 MG/DL (0.2-1.0); Calcium 8.6 MG/DL (8.5-10.1); Osmolality,Calculated 284.3 MOS/KG (273-304); Potassium 4.2 MMOL/L (3.5-5.1); Total Protein 6.8 G/DL (6.4-8.2)
[2021-02-26 23:56] LABS: Amorphous Crystals,Urine Occasional /HPF (Few); Bilirubin,Urine Negative (Negative); Blood, Urine Negative (Negative); Glucose,Urine (UA) Negative (Negative); Hyaline Casts,Urine 1 /LPF (0-3); Ketones,Urine Negative (Negative); Mucus,Urine Occasional /LPF (Occasional); Nitrite,Urine Negative (Negative); Protein,Urine Negative; RBC,Urine 2 /HPF (0-4); Renal Epithelial Cells,Urine Occasional /HPF (<1); Squamous Epithelial Cell,Urine Occasional /HPF (0-10); Urine Appearance CLEAR (Clear); Urine Color Amber (Yellow); Urine Specific Gravity 1.012 (1.001-1.035); WBC,Urine 10 /HPF (0-6)
[2021-02-27 00:32] LABS: Hypochromasia 1+
[2021-02-27 00:33] LABS: Platelet Estimate Adequate
[2021-02-27] MEDS ORDERED: HYDROmorphone 2 MG/1 ML VIAL IV STA (01:31)
[2021-02-27] MEDS ORDERED: ONDANSETRON 4 MG/2 ML VIAL IV STA (03:15)
[2021-02-27] MEDS ORDERED: PROMETHAZINE INJ 25 MG in SODIUM CHLORIDE 0.9% 50 ML IV PRN (03:57)
[2021-02-27] MEDS ORDERED: DEXTROSE 50% 25 GM/50 ML VIAL IV PRN (04:02)
[2021-02-27] MEDS ORDERED: GLUCAGON 1 MG VIAL IM PRN (04:02)
[2021-02-27] MEDS ORDERED: hydrALAZINE 20 MG/1 ML VIAL IV PRN (05:08)
[2021-02-27 05:35] LABS: Basophils % 0.6 % (0.0-0.8); Eosinophils % 0.2 % (0.00-10.9); Hematocrit 41.5 VOL% (35.7-47.0); Hemoglobin 13.8 GM/DL (12.0-16.0); Immature Granulocytes % 0.4 %; Immature Granulocytes Absolute 0.02 #; Lymphocytes # 0.8 10*3/uL (1.4-4.0); Lymphocytes % 15.1 % (21.3-54.2); Mean Corpuscular HGB Conc 33.3 GM/DL (32-36); Mean Corpuscular Volume 93.3 FL (87-102); Mean Platelet Volume 9.9 FL (9.6-12.0); Monocytes % 7.2 % (1.7-12.7); Neutrophils % 76.5 % (38.7-73.9); Platelet Count 188 T/CUMM (130-400); Red Blood Count 4.45 MC/CUMM (3.8-5.5); Red Cell Distribution Width 13.2 % (9.3-17.3); White Blood Count 5.4 T/CUMM (4-12)
[2021-02-27 06:00] LABS: Albumin 3.5 G/DL (3.4-5.0); Bilirubin,Total 1.8 MG/DL (0.2-1.0); Osmolality,Calculated 283.3 MOS/KG (273-304); Potassium 4.3 MMOL/L (3.5-5.1); Risk Ratio 2.7; Total Protein 7.3 G/DL (6.4-8.2); VLDL CHOLESTEROL 12.8 MG/DL
[2021-02-27 06:37] LABS: Hepatitis B Core IgM Quant < 0.05 Index; Hepatitis B Surface Ag Quant < 0.10 Index; Hepatitis B Surface Ag Result Non-Reactive (NonReactive); Hepatitis C Virus Ab Quant 0.11 Index; Hepatitis C Virus Ab Result Non-Reactive (NonReactive)
[2021-02-27] MEDS: SODIUM CHLORIDE 0.9% 1,000 ML IV SCH (06:38)
[2021-02-27] MEDS: PIPERACILLIN/TAZOBACTAM 3,375 MG in SODIUM CHLORIDE 0.9% 100 ML IV SCH ×2 (06:42→21:01)
[2021-02-27] MEDS: PANTOPRAZOLE 40 MG VIAL IV SCH (18:35)
[2021-02-28] MEDS: ONDANSETRON 4 MG/2 ML VIAL IV PRN ×3 (04:10→20:24)
[2021-02-28] MEDS: HYDROmorphone 2 MG/1 ML VIAL IV PRN ×2 (04:10→09:40)
[2021-02-28 05:00] LABS: Basophils % 0.8 % (0.0-0.8); Eosinophils # 0.2 10*3/uL (0.0-0.87); Eosinophils % 3.8 % (0.00-10.9); Hematocrit 38.3 VOL% (35.7-47.0); Hemoglobin 12.4 GM/DL (12.0-16.0); Immature Granulocytes % 0.4 %; Immature Granulocytes Absolute 0.02 #; Lymphocytes % 19.3 % (21.3-54.2); Mean Corpuscular HGB Conc 32.4 GM/DL (32-36); Mean Corpuscular Volume 94.3 FL (87-102); Mean Platelet Volume 9.9 FL (9.6-12.0); Neutrophils % 64.7 % (38.7-73.9); Platelet Count 164 T/CUMM (130-400); Red Blood Count 4.06 MC/CUMM (3.8-5.5); Red Cell Distribution Width 13.2 % (9.3-17.3)
[2021-02-28 05:31] LABS: Albumin 3.2 G/DL (3.4-5.0); Bilirubin,Total 1.5 MG/DL (0.2-1.0); Calcium 8.6 MG/DL (8.5-10.1); Potassium 3.7 MMOL/L (3.5-5.1); Total Protein 6.5 G/DL (6.4-8.2)
[2021-02-28] MEDS: PIPERACILLIN/TAZOBACTAM 3,375 MG in SODIUM CHLORIDE 0.9% 100 ML IV SCH ×3 (05:32→20:20)
[2021-02-28] MEDS: PANTOPRAZOLE 40 MG VIAL IV SCH (08:59)
[2021-02-28] MEDS: SODIUM CHLORIDE 0.9% 1,000 ML IV SCH ×4 (08:59→13:32)
[2021-02-28] MEDS: BISOPROLOL 5 MG TABLET PO SCH (12:15)
[2021-02-28] MEDS: DULoxetine 30 MG CAPSULE PO SCH ×2 (12:15→20:27)
[2021-02-28] MEDS ORDERED: BISOPROLOL 5 MG TABLET PO SCH (13:00)
[2021-02-28] MEDS ORDERED: METOPROLOL TARTRATE 5 MG/5 ML VIAL IV ONE ×2 (13:02→13:19)
[2021-02-28] MEDS ORDERED: DIGOXIN 0.5 MG/2 ML AMP IV ONE (13:30)
[2021-02-28] MEDS: GABAPENTIN 300 MG CAPSULE PO SCH (20:27)
[2021-03-01] MEDS: SODIUM CHLORIDE 0.9% 1,000 ML IV SCH ×3 (04:27→21:04)
[2021-03-01] MEDS: PIPERACILLIN/TAZOBACTAM 3,375 MG in SODIUM CHLORIDE 0.9% 100 ML IV SCH ×3 (04:27→21:04)
[2021-03-01] MEDS: LEVOTHYROXINE 50 MCG TABLET PO SCH (05:42)
[2021-03-01 06:47] LABS: Calcium 8.5 MG/DL (8.5-10.1); Osmolality,Calculated 280.3 MOS/KG (273-304); Potassium 3.9 MMOL/L (3.5-5.1); Total Protein 6.4 G/DL (6.4-8.2)
[2021-03-01 07:41] LABS: Basophils % 0.6 % (0.0-0.8); Eosinophils # 0.2 10*3/uL (0.0-0.87); Eosinophils % 3.3 % (0.00-10.9); Hematocrit 36.5 VOL% (35.7-47.0); Immature Granulocytes % 0.4 %; Immature Granulocytes Absolute 0.02 #; Lymphocytes # 1.1 10*3/uL (1.4-4.0); Lymphocytes % 22.2 % (21.3-54.2); Mean Corpuscular HGB Conc 32.9 GM/DL (32-36); Mean Corpuscular Volume 94.8 FL (87-102); Mean Platelet Volume 9.7 FL (9.6-12.0); Monocytes % 13.9 % (1.7-12.7); Neutrophils % 59.6 % (38.7-73.9); Platelet Count 156 T/CUMM (130-400); Red Blood Count 3.85 MC/CUMM (3.8-5.5); Red Cell Distribution Width 12.8 % (9.3-17.3); White Blood Count 4.8 T/CUMM (4-12)
[2021-03-01] MEDS: ONDANSETRON 4 MG/2 ML VIAL IV PRN ×2 (09:51→21:05)
[2021-03-01] MEDS: DULoxetine 30 MG CAPSULE PO SCH ×2 (09:55→21:04)
[2021-03-01] MEDS: BISOPROLOL 5 MG TABLET PO SCH (09:55)
[2021-03-01] MEDS: PANTOPRAZOLE 40 MG TABLET PO SCH (09:55)
[2021-03-01] MEDS: HYDROmorphone 2 MG/1 ML VIAL IV PRN ×2 (10:02→22:49)
[2021-03-01] MEDS ORDERED: hydrOXYzine HCL 25 MG TABLET PO PRN (10:19)
[2021-03-01] MEDS: GABAPENTIN 300 MG CAPSULE PO SCH (21:04)
[2021-03-02] MEDS: SODIUM CHLORIDE 0.9% 1,000 ML IV SCH ×2 (02:15→15:58)
[2021-03-02] MEDS: PIPERACILLIN/TAZOBACTAM 3,375 MG in SODIUM CHLORIDE 0.9% 100 ML IV SCH ×3 (05:12→21:29)
[2021-03-02 05:31] LABS: Basophils % 0.7 % (0.0-0.8); Eosinophils # 0.2 10*3/uL (0.0-0.87); Eosinophils % 3.5 % (0.00-10.9); Hematocrit 36.5 VOL% (35.7-47.0); Hemoglobin 11.6 GM/DL (12.0-16.0); Immature Granulocytes % 0.4 %; Immature Granulocytes Absolute 0.02 #; Lymphocytes # 1.1 10*3/uL (1.4-4.0); Lymphocytes % 19.9 % (21.3-54.2); Mean Corpuscular HGB Conc 31.8 GM/DL (32-36); Mean Corpuscular Volume 96.3 FL (87-102); Mean Platelet Volume 9.8 FL (9.6-12.0); Monocytes % 12.4 % (1.7-12.7); Neutrophils % 63.1 % (38.7-73.9); Platelet Count 154 T/CUMM (130-400); Red Blood Count 3.79 MC/CUMM (3.8-5.5); Red Cell Distribution Width 13.1 % (9.3-17.3); White Blood Count 5.5 T/CUMM (4-12)
[2021-03-02] MEDS: LEVOTHYROXINE 50 MCG TABLET PO SCH ×2 (05:37→09:51)
[2021-03-02 06:07] LABS: Albumin 2.9 G/DL (3.4-5.0); Calcium 8.4 MG/DL (8.5-10.1); Osmolality,Calculated 276.4 MOS/KG (273-304); Potassium 3.8 MMOL/L (3.5-5.1); Total Protein 6.3 G/DL (6.4-8.2)
[2021-03-02] MEDS ORDERED: METOPROLOL TARTRATE 5 MG/5 ML VIAL IV ONE (07:54)
[2021-03-02] MEDS ORDERED: AMIODARONE 150 MG/3 ML VIAL ONE (08:03)
[2021-03-02] MEDS ORDERED: AMIODARONE 450 MG/9 ML VIAL IV ONE (08:03)
[2021-03-02] MEDS ORDERED: NITROGLYCERIN SL 0.4 MG TABLET SL PRN (08:16)
[2021-03-02] MEDS ORDERED: ASPIRIN CHEW 81 MG TABLET PO ONE (08:16)
[2021-03-02] MEDS ORDERED: NITROGLYCERIN SL 0.4 MG TABLET SL ONE (08:19)
[2021-03-02] MEDS ORDERED: ASPIRIN EC 325 MG TABLET PO ONE (08:20)
[2021-03-02 08:53] LABS: Troponin I < 0.015 NG/ML (0.00-0.045)
[2021-03-02 08:56] LABS: Albumin 2.9 G/DL (3.4-5.0); Calcium 8.4 MG/DL (8.5-10.1); Osmolality,Calculated 277.3 MOS/KG (273-304); Potassium 3.4 MMOL/L (3.5-5.1); Total Protein 6.4 G/DL (6.4-8.2)
[2021-03-02] MEDS ORDERED: AMIODARONE INJ 150 MG in DEXTROSE 5% 100 ML IV ONE (09:00)
[2021-03-02] MEDS ORDERED: AMIODARONE INJ 450 MG in DEXTROSE 5% 241 ML IV SCH (09:00)
[2021-03-02] MEDS: PANTOPRAZOLE 40 MG TABLET PO SCH (09:47)
[2021-03-02] MEDS: BISOPROLOL 5 MG TABLET PO SCH (09:47)
[2021-03-02] MEDS: DULoxetine 30 MG CAPSULE PO SCH ×2 (09:47→21:28)
[2021-03-02] MEDS ORDERED: POTASSIUM CHLORIDE 20 MEQ TABLET PO ONE (11:28)
[2021-03-02] MEDS ORDERED: cefOXitin 2,000 MG in SYRINGE 1 EACH IV ONE (11:46)
[2021-03-02] MEDS ORDERED: INDOCYANINE GREEN 25 MG VIAL IV ONE (11:46)
[2021-03-02 14:05] LABS: ABG Base Excess 3.4 MMOL/L (-2.5-2.5); ABG HCO3 28.5 MMOL/L (20-26); ABG Oxygen Saturation 98.8 % (95-100); ABG PCO2 45.5 MM HG (35-48); ABG PH 7.415 (7.35-7.45); ABG PO2 170.5 MM HG (80-95); ABG TCO2 29.9 MMOL/L (23-27)
[2021-03-02] MEDS: AMIODARONE INJ 450 MG in DEXTROSE 5% 241 ML IV SCH (15:00)
[2021-03-02] MEDS: AMIODARONE 200 MG TABLET PO SCH (21:29)
[2021-03-02] MEDS: GABAPENTIN 300 MG CAPSULE PO SCH (21:29)
[2021-03-03 05:21] LABS: Albumin 2.9 G/DL (3.4-5.0); Calcium 8.7 MG/DL (8.5-10.1); Osmolality,Calculated 278.3 MOS/KG (273-304); Potassium 3.5 MMOL/L (3.5-5.1); Total Protein 6.6 G/DL (6.4-8.2)
[2021-03-03] MEDS: AMIODARONE INJ 450 MG in DEXTROSE 5% 241 ML IV SCH (06:10)
[2021-03-03] MEDS: PIPERACILLIN/TAZOBACTAM 3,375 MG in SODIUM CHLORIDE 0.9% 100 ML IV SCH ×2 (06:12→14:05)
[2021-03-03] MEDS: LEVOTHYROXINE 50 MCG TABLET PO SCH (06:15)
[2021-03-03] MEDS ORDERED: ACETAMINOPHEN 500 MG TABLET PO ONE (07:00)
[2021-03-03] MEDS ORDERED: FAMOTIDINE 20 MG TABLET PO ONE (07:00)
[2021-03-03] MEDS ORDERED: INDOCYANINE GREEN 25 MG VIAL IV ONE (07:00)
[2021-03-03] MEDS: cefOXitin 2,000 MG in SYRINGE 1 EACH IV ONE ×2 (07:41→11:47)
[2021-03-03] MEDS ORDERED: ONDANSETRON 4 MG/2 ML VIAL ONE (08:33)
[2021-03-03] MEDS ORDERED: ROCURONIUM 50 MG/5 ML VIAL IV ONE (08:33)
[2021-03-03] MEDS ORDERED: propofoL 200 MG/20 ML VIAL IV ONE (08:33)
[2021-03-03] MEDS ORDERED: fentaNYL 100 MCG/2 ML VIAL ONE (08:33)
[2021-03-03] MEDS ORDERED: LIDOCAINE 2% 5 ML VIAL ONE (08:33)
[2021-03-03] MEDS ORDERED: BUPIVACAINE MPF 0.25% 30 ML VIAL ONE (10:07)
[2021-03-03] MEDS ORDERED: LIDOCAINE 1%/EPI INJ 20 ML VIAL ONE (10:07)
[2021-03-03] MEDS ORDERED: TISSUE ADHESIVE 1 EACH APPLICATOR TOP ONE (10:07)
[2021-03-03] MEDS ORDERED: ALBUMIN 5% 12.5 GM/250 ML VIAL IV ONE (10:15)
[2021-03-03] MEDS ORDERED: LACTATED RINGERS 1,000 ML IV SCH (10:30)
[2021-03-03] MEDS ORDERED: ESMOLOL 100 MG/10 ML VIAL IV ONE (11:56)
[2021-03-03] MEDS ORDERED: DEXAMETHASONE 4 MG/1 ML VIAL ONE (11:56)
[2021-03-03] MEDS ORDERED: ETOMIDATE 40 MG/20 ML VIAL IV ONE (11:57)
[2021-03-03] MEDS ORDERED: SEVOFLURANE 1 UNIT/15 MINUTE INH ONE ×8 (11:57)
[2021-03-03] MEDS ORDERED: SUGAMMADEX 200 MG/2 ML VIAL IV ONE (11:59)
[2021-03-03] MEDS ORDERED: LABETALOL 20 MG/4 ML SYRINGE IV ONE (12:00)
[2021-03-03] MEDS ORDERED: ONDANSETRON 4 MG/2 ML VIAL IV PRN (12:35)
[2021-03-03] MEDS: lisinopriL 2.5 MG TABLET PO SCH (13:56)
[2021-03-03] MEDS: DULoxetine 30 MG CAPSULE PO SCH ×2 (13:56→20:44)
[2021-03-03] MEDS: AMIODARONE 200 MG TABLET PO SCH ×2 (13:56→20:44)
[2021-03-03] MEDS: BISOPROLOL 5 MG TABLET PO SCH (13:56)
[2021-03-03] MEDS: ASCORBIC ACID 500 MG TABLET PO SCH (13:56)
[2021-03-03] MEDS: PANTOPRAZOLE 40 MG TABLET PO SCH (13:56)
[2021-03-03] MEDS: GABAPENTIN 300 MG CAPSULE PO SCH (20:44)
[2021-03-04] MEDS: LEVOTHYROXINE 50 MCG TABLET PO SCH (05:43)
[2021-03-04 08:59] LABS: Calcium 8.7 MG/DL (8.5-10.1); Osmolality,Calculated 276.5 MOS/KG (273-304); Potassium 3.4 MMOL/L (3.5-5.1)
[2021-03-04] MEDS: lisinopriL 2.5 MG TABLET PO SCH (09:06)
[2021-03-04] MEDS: PANTOPRAZOLE 40 MG TABLET PO SCH (09:06)
[2021-03-04] MEDS: ASCORBIC ACID 500 MG TABLET PO SCH (09:06)
[2021-03-04] MEDS: AMIODARONE 200 MG TABLET PO SCH (09:06)
[2021-03-04] MEDS: BISOPROLOL 5 MG TABLET PO SCH (09:06)
[2021-03-04] MEDS: DULoxetine 30 MG CAPSULE PO SCH (09:06)
[2021-03-04 12:10] VITALS: BP 112/64
[2021-03-05] MEDS ORDERED: APIXABAN 5 MG TABLET PO SCH (09:00)
[2021-03-06 11:54] LABS: Anti-Nuclear Antibody Pattern SPECKLED
[2021-03-06 11:55] LABS: Anti SS-A Antibodies < 16 EU/ML
[2021-03-10 12:15] LABS: Double Stranded DNA Antibodies < 25.0 IU/ML
== END 2021-03-04 12:21 | disposition home or self-care (01) | DRG 418 ==
LOC: EDUNIT# → EDBD → N.ED 22:52 → N.4E 22:52 → SUATTDRO 02-27 03:53 → N.4E 02-27 04:30 → N.TELEN 03-02 08:56
PROVIDERS: ADMIT Internal Medicine; ATTEND Internal Medicine